=== PATIENT | female | born 1950 | race Caucasian/White ===

== ENCOUNTER 2017-07-24 04:53 | Emergency (ER) | payer BC, MEDICARE ==
[2017-07-24] MEDS ORDERED: MAG HYDROX/AL HYDROX/SIMETH 30 ML, HYOSCYAMINE ELIXIR 10 ML, CIMETIDINE HCL 300 MG, LID... PO STA ×4 (06:07)
[2017-07-24] MEDS ORDERED: PANTOPRAZOLE 40 MG/10 ML VIAL IVP STA (06:07)
[2017-07-24 06:44] LABS: Basophils % (A) 0 %; Eosinophils # (A) 0.2 k/uL (0-0.7); Eosinophils % (A) 2 %; HCT 39.5 % (34.0-46.0); HGB 12.9 gm/dL (11.4-16.0); Lymphocytes # (A) 1.2 k/uL (1.0-4.8); Lymphocytes % (A) 17 %; MCH 28.5 pg (25.0-35.0); MCHC 32.6 g/dL (31.0-37.0); MCV 87.4 fL (80.0-100.0); Mean Platelet Volume 8.8; Monocytes # (A) 0.4 k/uL (0-1.0); Monocytes % (A) 6 %; Neutrophils # (A) 5.1 k/uL (1.3-7.7); Neutrophils % (A) 72 %; Platelet Count 255 k/uL (150-450); RBC 4.52 m/uL (3.80-5.40); RDW 13.1 % (11.5-15.5); WBC 7.1 k/uL (3.8-10.6)
[2017-07-24 06:50] LABS: ALT 43 U/L (9-52); AST 19 U/L (14-36); Albumin 3.7 g/dL (3.5-5.0); Alkaline Phosphatase 93 U/L (38-126); Anion Gap 13 mmol/L; Blood Urea Nitrogen 20 mg/dL (7-17); Carbon Dioxide 20 mmol/L (22-30); Chloride 107 mmol/L (98-107); Glucose 94 mg/dL (74-99); Potassium 3.2 mmol/L (3.5-5.1); Sodium 140 mmol/L (137-145); Total Bilirubin 0.5 mg/dL (0.2-1.3); Total Protein 6.3 g/dL (6.3-8.2)
[2017-07-24 07:02] LABS: Creatine Kinase 76 U/L (30-135)
[2017-07-24 07:12] LABS: Partial Thromboplastin Time 21.1 sec (22.0-30.0)
[2017-07-24 07:16] LABS: Troponin I <0.012 ng/mL (0.000-0.034)
[2017-07-24 07:44] VITALS: RESP 18
[2017-07-24] MEDS ORDERED: DICYCLOMINE 20 MG TAB PO STA (08:26)
--- NOTE | 2017-07-24 08:26 | ED ---
General Adult HPI - General Chief complaint: Shortness of Breath Stated complaint: SOB Time Seen by Provider: 07/24/17 05:18 Source: patient, EMS Mode of arrival: EMS Limitations: no limitations - History of Present Illness Initial comments: This patient is 67-year-old woman who presents with some epigastric discomfort that started tonight. The symptoms have resolved. -: hour(s) Location: abdomen Quality: dull Consistency: now resolved Improves with: none Worsens with: none Associated Symptoms: denies other symptoms - Related Data Home Medications Medication Instructions Recorded Confirmed Atorvastatin [Lipitor] 20 mg PO HS 03/13/15 07/24/17 Clopidogrel [Plavix] 75 mg PO HS 03/13/15 07/24/17 Omeprazole [PriLOSEC] 20 mg PO AC-BRKFST 03/13/15 07/24/17 Polyethylene Glycol 3350 [Miralax] 17 gm PO DAILY@1800 03/13/15 07/24/17 Sucralfate [Carafate] 1 gm PO DAILY 03/13/15 07/24/17 traMADol HCl [Ultram] 50 mg PO Q6H PRN 04/19/15 07/24/17 Ferrous Sulfate [Iron] 325 mg PO DAILY 07/24/17 07/24/17 Latanoprost [Xalatan 0.005%] 1 drop BOTH EYES HS 07/24/17 07/24/17 Previous Rx's Medication Instructions Recorded Dicyclomine [Bentyl] 20 mg PO QID #15 tablet 07/24/17 Famotidine [Pepcid] 20 mg PO BID #14 tablet 07/24/17 Allergies Allergy/AdvReac Type Severity Reaction Status Date / Time No Known Allergies Allergy Verified 07/24/17 07:33 Review of Systems ROS Statement: Those systems with pertinent positive or pertinent negative responses have been documented in the HPI. ROS Other: All systems not noted in ROS Statement are negative. Constitutional: Denies: fever, chills, weakness Respiratory: Denies: cough, dyspnea Cardiovascular: Denies: chest pain, palpitations, dyspnea on exertion, orthopnea , syncope Gastrointestinal: Reports: as per HPI, abdominal pain, nausea. Denies: vomiting , diarrhea, melena, hematochezia Genitourinary: Denies: dysuria, hematuria Musculoskeletal: Denies: back pain Skin: Denies: rash Neurological: Denies: headache, weakness, numbness Past Medical History Past Medical History: CVA/TIA, GERD/Reflux Additional Past Medical History / Comment(s): STROKE, EVERYTHING RESOLVED. hx bleeding ulcers, lower back pain History of Any Multi-Drug Resistant Organisms: None Reported Past Surgical History: Hernia Repair, Hysterectomy, Orthopedic Surgery Additional Past Surgical History / Comment(s): Foot Surgery Past Anesthesia/Blood Transfusion Reactions: No Reported Reaction Past Psychological History: No Psychological Hx Reported Smoking Status: Former smoker Past Alcohol Use History: Occasional Past Drug Use History: None Reported - Past Family History Mother Family Medical History: No Reported History Father Family Medical History: Myocardial Infarction ([place]) General Exam Limitations: no limitations General appearance: alert, in no apparent distress Head exam: Present: atraumatic, normocephalic Eye exam: Present: normal appearance. Absent: scleral icterus, conjunctival injection Neck exam: Present: normal inspection Respiratory exam: Present: normal lung sounds bilaterally. Absent: respiratory distress, wheezes, rales, rhonchi, stridor Cardiovascular Exam: Present: regular rate, normal rhythm, normal heart sounds. Absent: systolic murmur, diastolic murmur, rubs, gallop GI/Abdominal exam: Present: soft, tenderness (Was mild epigastric tenderness without rebound or guarding), normal bowel sounds. Absent: distended, guarding , rebound, rigid, mass, pulsatile mass Extremities exam: Present: normal inspection, normal capillary refill. Absent: pedal edema, calf tenderness Back exam: Absent: CVA tenderness (R), CVA tenderness (L) Skin exam: Present: warm, dry, intact, normal color. Absent: rash Course Vital Signs 07/24/17 07/24/17 07/24/17 04:55 06:50 07:43 Temperature 97 F L Pulse Rate 71 66 66 Respiratory 17 17 18 Rate Blood Pressure 131/64 135/70 129/70 O2 Sat by Pulse 100 100 100 Oximetry 07/24/17 09:35 Temperature 98.4 F Pulse Rate 79 Respiratory 18 Rate Blood Pressure 128/69 O2 Sat by Pulse 98 Oximetry EKG Findings - EKG Results: EKG: interpreted by ERMD, sinus rhythm (Rate 65 bpm), normal axis, normal QRS - Blocks, [place], Hypertrophy, ST Abn: Repolarization changes or abnormalities: nonspecific abnormality, ST segment, and/or T wave Medical Decision Making - Medical Decision Making Patient's 67-year-old woman with epigastric discomfort that has resolved. We discussed possible causes for this. She is feeling better and wants to go home. Prior to going she did raise concern of having had some diarrhea and recent antibiotic course therefore was checked for clostridium which is negative. Discussed that she should follow-up with her physician for further care and also should any of the symptoms recur she will return here. - Lab Data Result diagrams: 07/24/17 06:23 07/24/17 06:23 Lab Results 07/24/17 07/24/17 07/24/17 Range/Units 06:23 06:23 06:23 WBC 7.1 (3.8-10.6) k/uL RBC 4.52 (3.80-5.40) m/uL Hgb 12.9 (11.4-16.0) gm/dL Hct 39.5 (34.0-46.0) % MCV 87.4 (80.0-100.0) fL MCH 28.5 (25.0-35.0) pg MCHC 32.6 (31.0-37.0) g/dL RDW 13.1 (11.5-15.5) % Plt Count 255 (150-450) k/uL Neutrophils % 72 % Lymphocytes % 17 % Monocytes % 6 % Eosinophils % 2 % Basophils % 0 % Neutrophils # 5.1 (1.3-7.7) k/uL Lymphocytes # 1.2 (1.0-4.8) k/uL Monocytes # 0.4 (0-1.0) k/uL Eosinophils # 0.2 (0-0.7) k/uL Basophils # 0.0 (0-0.2) k/uL PT (9.0-12.0) sec INR (<1.2) APTT (22.0-30.0) sec Sodium 140 (137-145) mmol/L Potassium 3.2 L (3.5-5.1) mmol/L Chloride 107 (98-107) mmol/L Carbon Dioxide 20 L (22-30) mmol/L Anion Gap 13 mmol/L BUN 20 H (7-17) mg/dL Creatinine 1.10 H (0.52-1.04) mg/dL Est GFR (MDRD) Af Amer >60 (>60 ml/min/1.73 sqM) Est GFR (MDRD) Non-Af 50 (>60 ml/min/1.73 sqM) Glucose 94 (74-99) mg/dL Plasma Lactic Acid Thomas (0.7-2.0) mmol/L Calcium 9.0 (8.4-10.2) mg/dL Total Bilirubin 0.5 (0.2-1.3) mg/dL AST 19 (14-36) U/L ALT 43 (9-52) U/L Alkaline Phosphatase 93 (38-126) U/L Total Creatine Kinase 76 (30-135) U/L CK-MB (CK-2) 1.0 (0.0-2.4) ng/mL CK-MB (CK-2) Rel Index 1.3 Troponin I <0.012 (0.000-0.034) ng/mL Total Protein 6.3 (6.3-8.2) g/dL Albumin 3.7 (3.5-5.0) g/dL Stool Occult Blood (Negative) C. difficile (EIA) Intrp (Negative) 07/24/17 07/24/17 07/24/17 Range/Units 06:23 06:23 07:36 WBC (3.8-10.6) k/uL RBC (3.80-5.40) m/uL Hgb (11.4-16.0) gm/dL Hct (34.0-46.0) % MCV (80.0-100.0) fL MCH (25.0-35.0) pg MCHC (31.0-37.0) g/dL RDW (11.5-15.5) % Plt Count (150-450) k/uL Neutrophils % % Lymphocytes % % Monocytes % % Eosinophils % % Basophils % % Neutrophils # (1.3-7.7) k/uL Lymphocytes # (1.0-4.8) k/uL Monocytes # (0-1.0) k/uL Eosinophils # (0-0.7) k/uL Basophils # (0-0.2) k/uL PT 10.0 (9.0-12.0) sec INR 1.0 (<1.2) APTT 21.1 L (22.0-30.0) sec Sodium (137-145) mmol/L Potassium (3.5-5.1) mmol/L Chloride (98-107) mmol/L Carbon Dioxide (22-30) mmol/L Anion Gap mmol/L BUN (7-17) mg/dL Creatinine (0.52-1.04) mg/dL Est GFR (MDRD) Af Amer (>60 ml/min/1.73 sqM) Est GFR (MDRD) Non-Af (>60 ml/min/1.73 sqM) Glucose (74-99) mg/dL Plasma Lactic Acid Thomas 0.9 (0.7-2.0) mmol/L Calcium (8.4-10.2) mg/dL Total Bilirubin (0.2-1.3) mg/dL AST (14-36) U/L ALT (9-52) U/L Alkaline Phosphatase (38-126) U/L Total Creatine Kinase (30-135) U/L CK-MB (CK-2) (0.0-2.4) ng/mL CK-MB (CK-2) Rel Index Troponin I (0.000-0.034) ng/mL Total Protein (6.3-8.2) g/dL Albumin (3.5-5.0) g/dL Stool Occult Blood Negative (Negative) C. difficile (EIA) Intrp (Negative) 07/24/17 Range/Units 07:36 WBC (3.8-10.6) k/uL RBC (3.80-5.40) m/uL Hgb (11.4-16.0) gm/dL Hct (34.0-46.0) % MCV (80.0-100.0) fL MCH (25.0-35.0) pg MCHC (31.0-37.0) g/dL RDW (11.5-15.5) % Plt Count (150-450) k/uL Neutrophils % % Lymphocytes % % Monocytes % % Eosinophils % % Basophils % % Neutrophils # (1.3-7.7) k/uL Lymphocytes # (1.0-4.8) k/uL Monocytes # (0-1.0) k/uL Eosinophils # (0-0.7) k/uL Basophils # (0-0.2) k/uL PT (9.0-12.0) sec INR (<1.2) APTT (22.0-30.0) sec Sodium (137-145) mmol/L Potassium (3.5-5.1) mmol/L Chloride (98-107) mmol/L Carbon Dioxide (22-30) mmol/L Anion Gap mmol/L BUN (7-17) mg/dL Creatinine (0.52-1.04) mg/dL Est GFR (MDRD) Af Amer (>60 ml/min/1.73 sqM) Est GFR (MDRD) Non-Af (>60 ml/min/1.73 sqM) Glucose (74-99) mg/dL Plasma Lactic Acid Thomas (0.7-2.0) mmol/L Calcium (8.4-10.2) mg/dL Total Bilirubin (0.2-1.3) mg/dL AST (14-36) U/L ALT (9-52) U/L Alkaline Phosphatase (38-126) U/L Total Creatine Kinase (30-135) U/L CK-MB (CK-2) (0.0-2.4) ng/mL CK-MB (CK-2) Rel Index Troponin I (0.000-0.034) ng/mL Total Protein (6.3-8.2) g/dL Albumin (3.5-5.0) g/dL Stool Occult Blood (Negative) C. difficile (EIA) Intrp Negative (Negative) Disposition Clinical Impression: Gastritis Disposition: HOME SELF-CARE Condition: Good Instructions: Gastritis (ED) Prescriptions: Dicyclomine [Bentyl] 20 mg PO QID #15 tablet Famotidine [Pepcid] 20 mg PO BID #14 tablet Referrals: Julia Haney MD [Primary Care Provider] - 1-2 days
[2017-07-24 09:37] VITALS: BP 128/69; PULSE 79; TEMP 98.4
== END 2017-07-24 09:37 | disposition home or self-care (01) ==
LOC: EC 04:53
DX: K29.70 Gastritis, unspecified, without bleeding (principal); K21.9 Gastro-esophageal reflux disease without esophagitis; Z86.73 Personal history of transient ischemic attack (TIA), and cerebral infarction without residual deficits; Z87.891 Personal history of nicotine dependence; Z79.02 Long term (current) use of antithrombotics/antiplatelets; Z79.899 Other long term (current) drug therapy
CPT/HCPCS: 36415; 93005; 80053; 82550; 82553; 83605; 84484; 85025; 85610; 85730; 82272; 87324; 99285; 96374; C9113

== ENCOUNTER → 2017-12-04 | Outpatient (CLI) | payer BC, MEDICARE | END | disposition home or self-care (01) | LOC: LABWHC1 16:04 | PROVIDERS: ATTEND Nurse Practitioner | DX: Z13.89 Encounter for screening for other disorder (principal); Z83.49 Family history of other endocrine, nutritional and metabolic diseases | CPT/HCPCS: 36415; 82390; 82525 ==

== ENCOUNTER → 2018-01-20 | Outpatient (CLI) | payer BC, MEDICARE ==
--- NOTE | 2018-01-21 13:44 | MM ---
Reason for exam: screening (asymptomatic). Last mammogram was performed 2 years and 4 months ago. History: Patient is postmenopausal. Physical Findings: A clinical breast exam by your physician is recommended on an annual basis and results should be correlated with mammographic findings. MG 3D Screening Mammo W/Cad Bilateral CC and MLO view(s) were taken. Prior study comparison: September 26, 2015, left breast MG 3d work up w/cad LT. September 08, 2015, bilateral MG 3d screening mammo w/cad. The breast tissue is heterogeneously dense. This may lower the sensitivity of mammography. There is no discrete abnormality. No significant changes when compared with prior studies. ASSESSMENT: Negative, BI-RAD 1 RECOMMENDATION: Routine screening mammogram of both breasts in 1 year.
== END | disposition home or self-care (01) ==
LOC: RADMAMWWP 07:51
PROVIDERS: ATTEND Family Medicine
DX: Z12.31 Encounter for screening mammogram for malignant neoplasm of breast (principal)
CPT/HCPCS: 77063; 77067

== ENCOUNTER → 2019-01-21 | Outpatient (CLI) | payer MEDICARE ==
--- NOTE | 2019-01-21 13:21 | MM ---
Reason for exam: screening (asymptomatic). Last mammogram was performed 1 year ago. History: Patient is postmenopausal. Physical Findings: A clinical breast exam by your physician is recommended on an annual basis and results should be correlated with mammographic findings. MG 3D Screening Mammo W/Cad Bilateral CC and MLO view(s) were taken. Prior study comparison: January 20, 2018, bilateral MG 3d screening mammo w/cad. September 26, 2015, left breast MG 3d work up w/cad LT. There are scattered fibroglandular densities. There is no discrete abnormality. ASSESSMENT: Negative, BI-RAD 1 RECOMMENDATION: Routine screening mammogram of both breasts in 1 year.
== END | disposition home or self-care (01) ==
LOC: RADMAMWWP 09:33
PROVIDERS: ATTEND Nurse Practitioner
DX: Z12.31 Encounter for screening mammogram for malignant neoplasm of breast (principal)
CPT/HCPCS: 77063; 77067

== ENCOUNTER → 2021-11-24 | Outpatient (CLI) | payer MEDICARE, OTHER ==
--- NOTE | 2021-11-24 08:45 | FL ---
EXAMINATION TYPE: FL barium swallow DATE OF EXAM: 11/24/2021 CLINICAL HISTORY: Dysphagia. Patient feels food getting stuck in the mid to distal esophagus. Mid to lower abdominal pain. History of bleeding ulcer 2014. Patient on chronic antireflux medication. TECHNIQUE: A double contrast esophagram is performed utilizing air and barium. A total of 27 second s of fluoroscopic time was utilized during procedure and 128 images obtained COMPARISON: None FINDINGS: The esophagus shows some mild dysmotility with a few abnormal secondary tertiary contractio ns. There is satisfactory emptying into stomach. No diverticulum is seen small sliding-type hiatal he rnia. No intraluminal mass or stricture. No significant gastroesophageal reflux was seen during real time performance of this study. IMPRESSION: Small sliding-type hiatal hernia. No suspicious focal mass or significant stricture. Mil d underlying esophageal dysmotility.
== END | disposition home or self-care (01) ==
LOC: RADUSWWP 07:45
PROVIDERS: ATTEND Surgery Plastic and Reconstructive Surgery
DX: K44.9 Diaphragmatic hernia without obstruction or gangrene (principal); K22.4 Dyskinesia of esophagus
CPT/HCPCS: 74220

== ENCOUNTER → 2021-12-12 | Outpatient (CLI) | payer MEDICARE, OTHER ==
--- NOTE | 2021-12-12 19:06 | BD ---
EXAMINATION TYPE: Axial Bone Density DATE OF EXAM: 12/12/2021 CLINICAL HISTORY: 71 years year old Female. ICD-10 CODE: Z78.0 Asymptomatic menopausal state Height: 5 FT 5 IN Weight: 182 FRAX RISK QUESTIONS: Alcohol (3 or more units per day): NO Family History (Parent hip fracture): NO Glucocorticoids (More than 3mos): NO (Ex: prednisone, prednisolone, methylprednisolone, dexamethasone, and hydrocortisone). History of Fracture in Adulthood: NO Secondary Osteoporosis: 1. Type 1 Diabetes: NO 2. Hyperthyroidism: NO 3. Menopause before 45: YES 4. Malnutrition: NO 5. Chronic liver disease: NO Rheumatoid Arthritis: NO Current Tobacco Use: NO RISK FACTORS HISTORY OF: Surgery to Spine/Hip(right/left)/Wrist (right/left): NO Family History of Osteoporosis: NO Active: YES Diet low in dairy products/other sources of calcium: NO Postmenopausal woman: YES Take estrogen and/or progesterone medications: NO Lost more than 2 inches in height since high school: YES Frequent falls: NO Poor Health: GOOD Hyperparathyroidism: NO Adrenal Insufficiency: NO MEDICATIONS: Additional Medications: PLAVIX, LIPITOR, PRILOSEC, CARAFATE, LEVOTHYROXINE, XALATAN Additional History: EXAM MEASUREMENTS: Bone mineral densitometry was performed using the [employer] System. Bone mineral density as measured about the Lumbar spine is: ----- L1-L4(G/cm2): 1.792 T Score Values are as follows: ----- L1: 5.1 ----- L2: 6.7 ----- L3: 3.6 ----- L4: 5.1 ----- L1-L4: 5.1 Bone mineral density has: INCREASED 25.7 % since study of: 2007 Bone mineral density about the R hip (g/cm2): 0.913 Bone mineral density about the L hip (g/cm2): 0.922 T Score values are as follows: -----R NecK : -0.8 -----L Neck: -0.9 -----R Total: -0.2 -----L Total: 0.1 Bone mineral density has: INCREASED 3.2 % since study of: 2007 FRAX%s: The graph provided illustrates a 3.1 % chance for a major osteoporotic fx and a 0.5 % chance for the hips probability for fx in 10 years time. IMPRESSION: Normal (Values between +1 and -1 indicate normal bone mass). However, note that measurements are bor dering on osteopenia at the hips. Consider repeating this study in 5 years or sooner if there is some new clinical indication. NOTE: T-SCORE=SD OF THE YOUNG ADULT MEAN.
--- NOTE | 2021-12-14 18:17 | MM ---
Reason for Exam: Screening (asymptomatic). Last mammogram was performed 2 year(s) and 11 month(s) ago. Patient History: Menarche at age 16. First Full-Term at age 28. Left ovary removed at age 49. Right ovary removed at age 49. Hysterectomy at age 49. Postmenopausal. Risk Values: Blanca 5 year model risk: 1.7%. NCI Lifetime model risk: 5.4%. Prior Study Comparison: 09/26/2015 Left Diagnostic Mammogram, [facility]. 01/20/2018 Bilateral Screening Mammogram, [facility]. 01/21/2019 Bilateral Screening Mammogram, [facility]. Tissue Density: There are scattered fibroglandular densities. Findings: Analyzed By CAD. There is no suspicious group of microcalcifications or new suspicious mass in either breast. Overall Assessment: Negative, BI-RAD 1 Management: Screening Mammogram of both breasts in 1 year. 1. Patient should continue monthly self breast exams. 2. This exam should not preclude additional follow-up of suspicious palpable abnormalities. Electronically signed and approved by: Amanda Corado M.D. Radiologist
== END | disposition home or self-care (01) ==
LOC: RADMAMWWP 13:30
PROVIDERS: ATTEND Family Medicine
DX: Z12.31 Encounter for screening mammogram for malignant neoplasm of breast (principal); Z78.0 Asymptomatic menopausal state
CPT/HCPCS: 77063; 77067; 77080

== ENCOUNTER 2022-01-04 09:52 | Day surgery (SDC) | payer MEDICARE, OTHER ==
[2021-12-29 15:07] VITALS: BMI 29.6
--- NOTE | 2022-01-04 07:35 | P.GSHP ---
History of Present Illness H&P Date: 01/04/22 CHIEF COMPLAINT: GERD HISTORY OF PRESENT ILLNESS: The patient is a 71-year-old female who presents reports gastroesophageal reflux disease. Upper endoscopy was offered for further evaluation and management. PAST MEDICAL HISTORY: Please see list. PAST SURGICAL HISTORY: Please see list. MEDICATIONS: Please see list. ALLERGIES: Please see list. SOCIAL HISTORY: No illicit drug use FAMILY HISTORY: No reports of Crohn disease or ulcerative colitis. REVIEW OF ORGAN SYSTEMS: CONSTITUTIONAL: No reports of fevers or chills. GI: Denies any blood in stools or constipation. PHYSICAL EXAM: VITAL SIGNS: Stable GENERAL: Well-developed and pleasant in no acute distress. HEENT: No scleral icterus. Extraocular movements grossly intact. Moist buccal mucosa. NECK: Supple without lymphadenopathy. CHEST: Unlabored respirations. Equal bilateral excursions. CARDIOVASCULAR: Regular rate and rhythm. Distal 2+ pulses. ABDOMEN: Soft, nondistended. MUSCULOSKELETAL: No clubbing, cyanosis, or edema. ASSESSMENT: 1. Gastroesophageal reflux disease PLAN: 1. Recommend proceeding with an upper endoscopy Past Medical History Past Medical History: CVA/TIA, Eye Disorder, GERD/Reflux, Hyperlipidemia Additional Past Medical History / Comment(s): STROKE, EVERYTHING RESOLVED. hx bleeding ulcers, lower back pain, BILAT GLAUCOMA History of Any Multi-Drug Resistant Organisms: None Reported Past Surgical History: Hernia Repair, Hysterectomy, Orthopedic Surgery Additional Past Surgical History / Comment(s): LT Foot Surgery. COLONOSCOPY Past Anesthesia/Blood Transfusion Reactions: No Reported Reaction Smoking Status: Former smoker - Past Family History Mother Family Medical History: No Reported History Father Family Medical History: Myocardial Infarction ([place]) Medications and Allergies Home Medications Medication Instructions Recorded Confirmed Type Atorvastatin [Lipitor] 20 mg PO HS 03/13/15 12/29/21 History Clopidogrel [Plavix] 75 mg PO HS 03/13/15 12/29/21 History Omeprazole [PriLOSEC] 20 mg PO AC-BRKFST 03/13/15 12/29/21 History Sucralfate [Carafate] 1 gm PO DAILY 03/13/15 12/29/21 History Latanoprost [Xalatan 0.005%] 1 drop BOTH EYES HS 07/24/17 12/29/21 History Levothyroxine Sodium [Synthroid] 50 mcg PO DAILY 12/29/21 12/29/21 History Allergies Allergy/AdvReac Type Severity Reaction Status Date / Time No Known Allergies Allergy Verified 12/29/21 14:55
[~2022-01-04 09:52] MED LIST: LACTATED RINGERS 1,000 ML IV SCH
[2022-01-04 10:22] VITALS: RESP 16; TEMP 96
[2022-01-04] MEDS ORDERED: LIDOCAINE 1% (10MG/ML) FOR IV START INTRADERMA ONE (10:22)
[2022-01-04] MEDS ORDERED: LIDOCAINE 2% INJ 20 MG/ML (2 ML VIAL) ONE (10:39)
[2022-01-04] MEDS ORDERED: PROPOFOL 10 MG/ML 20 ML VIAL IV ONE (10:39)
--- NOTE | 2022-01-04 10:57 | P.PCN ---
Date of Procedure: 01/04/22 Description of Procedure: PREOPERATIVE DIAGNOSIS: Gastroesophageal reflux disease. POSTOPERATIVE DIAGNOSIS: Gastroesophageal reflux disease. Gastritis. Diaphragmatic hiatal hernia OPERATION: Esophagogastroduodenoscopy with biopsies along antrum and duodenum SURGEON: Jaclyn Reyes MD ANESTHESIA: MAC. INDICATIONS: The patient is a 71-year-old female who presents with reflux disease. Benefits and risks of the procedure were described. Informed consent was obtained. DESCRIPTION: The patient was brought into the endoscopy suite and laid in the left lateral decubitus position. An Olympus gastroscope was passed along the posterior oropharynx down to the distal esophagus where the squamocolumnar junction was encountered at 36 cm from the incisors. The stomach was entered and no bile reflux was found. Additional findings are listed below. Biopsies with cold forceps were obtained of the antrum. The first through third portion of the duodenum was examined. Retroflexion of the scope confirmed Hill grade 3 lower esophageal valve. The squamocolumnar junction demonstrated LA grade B erosive e sophagitis. The stomach was desufflated. The patient tolerated the procedure well. FINDINGS: Squamocolumnar junction 36 cm from the incisors. Diaphragmatic hiatus at 38 cm. Hiatal hernia, 2 cm Hill grade 3 lower esophageal valve. LA grade B erosive esophagitis. Biopsies obtained of duodenum Chronic gastritis RECOMMENDATIONS: Upper endoscopy as needed. Plan - Discharge Summary Discharge Rx Participant: No New Discharge Prescriptions: Continue Sucralfate [Carafate] 1 gm PO DAILY Omeprazole [PriLOSEC] 20 mg PO AC-BRKFST Atorvastatin [Lipitor] 20 mg PO HS Clopidogrel [Plavix] 75 mg PO HS Latanoprost [Xalatan 0.005%] 1 drop BOTH EYES HS Levothyroxine Sodium [Synthroid] 50 mcg PO DAILY Discharge Medication List Atorvastatin [Lipitor] 20 mg PO HS 03/13/15 [History] Clopidogrel [Plavix] 75 mg PO HS 03/13/15 [History] Omeprazole [PriLOSEC] 20 mg PO AC-BRKFST 03/13/15 [History] Sucralfate [Carafate] 1 gm PO DAILY 03/13/15 [History] Latanoprost [Xalatan 0.005%] 1 drop BOTH EYES HS 07/24/17 [History] Levothyroxine Sodium [Synthroid] 50 mcg PO DAILY 12/29/21 [History] Follow up Appointment(s)/Referral(s): Jaclyn Reyes MD [STAFF PHYSICIAN] - 01/23/22 Patient Instructions/Handouts: GERD (Gastroesophageal Reflux Disease) (ED) Discharge Disposition: HOME SELF-CARE
[2022-01-04 11:16] VITALS: BP 112/72; PULSE 54
== END 2022-01-04 11:32 | disposition home or self-care (01) ==
LOC: ORWHC2ENDO 09:52
PROVIDERS: ATTEND Surgery Plastic and Reconstructive Surgery
DX: K21.00 Gastro-esophageal reflux disease with esophagitis, without bleeding (principal); K29.50 Unspecified chronic gastritis without bleeding; K44.9 Diaphragmatic hernia without obstruction or gangrene; E78.5 Hyperlipidemia, unspecified; H40.9 Unspecified glaucoma; Z86.73 Personal history of transient ischemic attack (TIA), and cerebral infarction without residual deficits; Z87.891 Personal history of nicotine dependence; Z82.49 Family history of ischemic heart disease and other diseases of the circulatory system; Z79.01 Long term (current) use of anticoagulants; Z79.899 Other long term (current) drug therapy; Z79.890 Hormone replacement therapy
CPT/HCPCS: 88305; 43239; J2704; J2001

== ENCOUNTER 2022-11-30 07:18 | Day surgery (SDC) | payer MEDICARE, OTHER ==
--- NOTE | 2022-11-30 06:01 | P.GSHP ---
History of Present Illness H&P Date: 11/30/22 CHIEF COMPLAINT: Paraesophageal hiatal hernia with gastroesophageal reflux disease. HISTORY OF PRESENT ILLNESS: The patient is a 72-year-old female who presents with symptomatic paraesophageal hiatal hernia over one year with gastroesophageal reflux disease. She has completed upper endoscopy workup. Now she presents for surgical intervention. PAST MEDICAL HISTORY: Please see list. PAST SURGICAL HISTORY: Please see list. MEDICATIONS: Please see list. ALLERGIES: Please see list. SOCIAL HISTORY: No illicit drug use FAMILY HISTORY: No reports of Crohn disease or ulcerative colitis. REVIEW OF ORGAN SYSTEMS: CONSTITUTIONAL: No reports of fevers or chills. GI: Denies any blood in stools or constipation. PHYSICAL EXAM: VITAL SIGNS: Stable GENERAL: Well-developed pleasant and in no acute distress. HEENT: No scleral icterus. Extraocular movements grossly intact. Moist buccal mucosa. NECK: Supple without lymphadenopathy. CHEST: Unlabored respirations. Equal bilateral excursions. CARDIOVASCULAR: Regular rate and rhythm. Distal 2+ pulses. ABDOMEN: Soft, nondistended. No peritoneal signs. MUSCULOSKELETAL: No clubbing, cyanosis, or edema. SKIN: Well-perfused. Good skin turgor. REPORTS: Upper endoscopy demonstrates paraesophageal hiatal hernia REPORTS: Cardiology risk assessment obtained. Please see chart. ASSESSMENT: 1. Diaphragmatic paraesophageal hiatal hernia with severe gastroesophageal reflux disease. PLAN: 1. Recommend proceeding with a robotic paraesophageal hiatal hernia with possible mesh. 2. Benefits and risks of surgical intervention was discussed including possibility of open technique. 3. Inpatient hospitalization recommended of 2 nights 4. DVT prophylaxis. 5. Antibiotic prophylaxis. 6. She has also completed a very low caloric high-protein diet to address underlying hepatomegaly. 7. Non narcotic pain management including abdominal wall block described 8. Blood sugar glucose described. 9. Weight loss management described. Past Medical History Past Medical History: CVA/TIA, GERD/Reflux, Thyroid Disorder Additional Past Medical History / Comment(s): STROKE, EVERYTHING RESOLVED. hx bleeding ulcers, lower back pain History of Any Multi-Drug Resistant Organisms: None Reported Past Surgical History: Hernia Repair, Hysterectomy, Orthopedic Surgery Additional Past Surgical History / Comment(s): Foot Surgery, inguinal hernia lft Past Anesthesia/Blood Transfusion Reactions: No Reported Reaction Additional Past Anesthesia/Blood Transfusion Reaction / Comment(s): no blood tx reactions with transfusion for bleeding ulcer Smoking Status: Former smoker - Past Family History Mother Family Medical History: No Reported History Father Family Medical History: Myocardial Infarction ([place]) Medications and Allergies Home Medications Medication Instructions Recorded Confirmed Type Atorvastatin [Lipitor] 20 mg PO HS 03/13/15 11/29/22 History Clopidogrel [Plavix] 75 mg PO HS 03/13/15 11/29/22 History Omeprazole [PriLOSEC] 20 mg PO AC-BRKFST 03/13/15 11/29/22 History Latanoprost [Xalatan 0.005%] 1 drop BOTH EYES HS 07/24/17 11/29/22 History Levothyroxine Sodium [Synthroid] 50 mcg PO DAILY 12/29/21 11/29/22 History Allergies Allergy/AdvReac Type Severity Reaction Status Date / Time No Known Allergies Allergy Verified 11/29/22 08:34
[~2022-11-30 07:18] MED LIST changes: +ACETAMINOPHEN TAB 500 MG TAB PO PRN; +CHLORHEXIDINE GLUCONATE 15 ML CUP MUCOUS MEM PRN; +DEXAMETHASONE SOD PHOSPHATE 4 MG/ML 1 ML VIAL IV ONE; +HEPARIN SODIUM,PORCINE/PF 5,000 UNIT/0.5 ML SYRINGE SQ PRN; +HYDROmorphone 0.5 MG/0.5 ML SYRINGE IVP PRN; -LACTATED RINGERS 1,000 ML IV SCH; +ONDANSETRON 4 MG/2 ML VIAL IVP ONE; +ONDANSETRON 4 MG/2 ML VIAL IVP PRN; +PANTOPRAZOLE 40 MG/10 ML VIAL IVP PRN; +SCOPOLAMINE 1 MG/72 HR PATCH TRANSDERM STA; +droPERidol 5 MG/2 ML VIAL IVP ONE
[2022-11-30] MEDS: LACTATED RINGERS 1,000 ML IV SCH (08:17)
[2022-11-30 08:38] LABS: Basophils % (A) 1 %; Eosinophils # (A) 0.2 k/uL (0-0.7); Eosinophils % (A) 4 %; HCT 32.3 % (34.0-46.0); HGB 10.5 gm/dL (11.4-16.0); Lymphocytes # (A) 1.4 k/uL (1.0-4.8); Lymphocytes % (A) 28 %; MCH 29.4 pg (25.0-35.0); MCHC 32.5 g/dL (31.0-37.0); MCV 90.5 fL (80.0-100.0); Mean Platelet Volume 11.2; Monocytes # (A) 0.3 k/uL (0-1.0); Monocytes % (A) 6 %; Neutrophils # (A) 2.8 k/uL (1.3-7.7); Neutrophils % (A) 59 %; Platelet Count 183 k/uL (150-450); RBC 3.56 m/uL (3.80-5.40); RDW 12.9 % (11.5-15.5); WBC 4.8 k/uL (3.8-10.6)
[2022-11-30 08:55] LABS: Albumin 3.7 g/dL (3.5-5.0); Calcium 9.2 mg/dL (8.4-10.2); Potassium 3.9 mmol/L (3.5-5.1); Total Bilirubin 0.4 mg/dL (0.2-1.3); Total Protein 6.3 g/dL (6.3-8.2)
[2022-11-30] MEDS ORDERED: MIDAZOLAM 2 MG/2 ML VIAL ONE (09:44)
[2022-11-30] MEDS ORDERED: GLYCOPYRROLATE 0.2 MG/ML 2 ML VIAL ONE (09:44)
[2022-11-30] MEDS ORDERED: fentaNYL (PF) 50 MCG/ML 2 ML AMP ONE (09:44)
[2022-11-30] MEDS ORDERED: ROCURONIUM 10 MG/ML (5 ML VIAL) IV ONE (09:44)
[2022-11-30] MEDS ORDERED: PROPOFOL 10 MG/ML 20 ML VIAL IV ONE (09:44)
[2022-11-30] MEDS ORDERED: NEOSTIGMINE 1 MG/ML 10 ML VIAL ONE (09:44)
[2022-11-30] MEDS ORDERED: LIDOCAINE 2% INJ 20 MG/ML (2 ML VIAL) ONE (09:44)
[2022-11-30] MEDS ORDERED: PHENYLEPHRINE-0.9% NACL SYG 1,000 MCG/10 ML SYRINGE ONE (09:44)
[2022-11-30] MEDS ORDERED: ePHEDrine 50 MG/ML 1 ML VIAL ONE (09:44)
[2022-11-30] MEDS ORDERED: SUCCINYLCHOLINE CHLORIDE 200 MG/10 ML VIAL IV ONE (09:44)
[2022-11-30] MEDS ORDERED: LIDOCAINE 0.5%-EPI 1:200,000 50 ML VIAL SQ ONE ×2 (10:18→10:19)
[2022-11-30] MEDS ORDERED: HYDROmorphone 0.5 MG/0.5 ML SYRINGE IVP ONE ×3 (11:52→12:07)
[2022-11-30] MEDS ORDERED: HYDROmorphone 1 MG/ML 1 ML SYRINGE IVP PRN (12:12)
--- NOTE | 2022-11-30 12:13 | P.OP ---
Date of Procedure: 11/30/22 Description of Procedure: SURGEON: HAYLEY HULL MD PREOPERATIVE DIAGNOSES: 1. Gastroesophageal reflux disease 2. Paraesophageal hiatal hernia, midline 3. Hypothyroidism 4. Coronary artery disease 5. Hyperlipidemia POSTOPERATIVE DIAGNOSES: 1. Gastroesophageal reflux disease 2. Paraesophageal hiatal hernia, midline, 3 x 3 cm 3. Hypothyroidism 4. Coronary artery disease 5. Hyperlipidemia 6. Pelvic adhesions OPERATION: 1. Robotic-assisted da Greg Xi laparoscopic reduction and repair of recurrent incarcerated paraesophageal hiatal hernia, 3 x 3 cm, with [place] Biopatch A 8 x 8 cm. 2. Intraoperative esophagogastroscopy 3. Placement of 56-[place] bougie ANESTHESIA: General with local anesthetic. ESTIMATED BLOOD LOSS: 5 mL Pathology: None COMPLICATIONS: None. FINDINGS: 1. Thoracic length 15 cm. 2. Port placed 12 cm distal. 3. Incarcerated upper pole of the stomach within the mediastinum with dissection performed 4. 3 cm paraesophageal incarcerated diaphragmatic hiatal hernia with moderate dissection into the mediastinum 5. [place] Biopatch A onlay mesh placed. 6. Reduction of incarcerated 3 cm superior pole of stomach from previously gastrectomy 7. GE junction at 35 cm from the incisors 8. Intra-abdominal esophageal length over 2 cm obtained INDICATIONS: The patient is a 72-year-old female who presents with epigastric abdominal pain, gastroesophageal reflux recalcitrant to medical therapy with a symptomatic diaphragmatic hiatal hernia. Preoperative workup including upper endoscopy demonstrated hiatal hernia with erosive esophagitis. Given the severity of her symptoms, she had elected for surgical intervention. Benefits and risks including bleeding, infection, recurrence, dysphagia, injury to the lung, need for further surgery was described at length. Informed consent was obtained. DESCRIPTION: The patient was brought into the operating room and placed in supine position. Preoperatively she had received heparin subcutaneously for DVT prophylaxis. After general induction, the abdomen was prepped and draped in standard sterile fashion. The patient had previously voided prior to coming to the operating room. Ioban draping was placed along the abdomen. A timeout protocol was confirmed with the surgical team, for which the patient's name, procedure to be performed including DVT prophylaxis with bilateral SCDs, and preoperative antibiotics were also confirmed. A robotic da Greg Xi system was prepped and primed. At 15 cm from the xiphoid to just below the umbilicus, proposed port sites were marked with indelible marker along the left axillary line, left mid-clavicular line with each ports were marked 10 cm from each other. A 5 mm 0 degrees laparoscopic trocar entry was performed along the left upper quadrant. The abdomen was insufflated to 15 mmHg pressure was tolerated well. Diagnostic laparoscopy demonstrated no injury to bowel, viscera. Peritoneal adhesions of the lower abdomen was identified and undisturbed. No additional adhesions were found along the liver or the sleeve gastrectomy to the liver. Next, one 8 mm robotic port was placed along the right upper abdomen. An 8-mm port was were placed along the left lateral abdominal wall. The camera 8-mm port was maintained along the epigastrium. Another 12 mm port was placed along the left upper abdominal wall after exchanging the 5 mm port. Please note that the ports were placed at least 20 cm away from the target anatomy. Care was taken to check that each robotic arm were safely away from collision with the bed or the patient. The patient was repositioned in reverse Trendelenburg position at 21-degrees after lowering the bed. The robot was docked above the left side of the patient. Using a grasper for arm 3, a grasper for arm 1, including vessel sealer for arm 2, the robotic system was docked and primed as described. Instruments were interchanged by the esl instructional assistant. I had sat at the console. Initial attention was brought to hiatus. Circumferentially the dissection at the hiatus was performed using vessel sealer including blunt dissection. The gastrohepatic ligament was cleaved using a vessel sealer. Next, the phrenoesophageal ligament was mobilized and the distal esophagus was mobilized circumferentially. An incarcerated hernia sac was found into the mediastinum. As a result, dissection into the mediastinum was performed. The left and right crura was identified. Significant mobilization of the distal to mid esophagus into the mediastinum was performed. Circumferentially, the hernia sac was incised and brought into the abdominal cavity. Care was taken to avoid any gastrotomy to the incarcerated upper pole of the stomach. The measured defect was measured with a ruler consistent with 3 cm axial length and 3 cm in width. After dissection, the distal esophagus at least 2 cm was brought into the abdominal cavity. Once the hiatus and crura was dissected, 2-0 VLOC suture was placed as a running suture to re-approximate the diaphragmatic hiatus posteriorly. To buttress the repair, a [place]atch A was prepared along the back table and cut in a half bardales-hole fashion as to reinforce the repair as an underlay. The mesh was resized posteriorly placed along the crural repair and tagged using 2- 0 VLOC. I went to the head of the bed to perform intraoperative esophagogastroduodenoscopy. An Olympus gastroscope was passed through posterior oropharynx, where the squamocolumnar junction was confirmed at 35 cm from the incisors. The hiatus repair was confirmed from the incisors. The stomach was entered. The stomach had been desufflated. No evidence of leaks were found or mucosal defects of the esophagus or stomach. The pylorus was patent. No duodenal ulcers were identified. This concluded the endoscopic portion of the case. The robot was undocked from the patient. I re-scrubbed into the case. All instruments and pneumoperitoneum were evacuated from the abdominal cavity. The incisions were cleansed with dilute hydrogen peroxide with saline solution. Incisions were reapproximated using 4-0 Monocryl in an interrupted subcuticular fashion. The 12-mm port site fascial defect was less than 8 mm in size. Exofin was applied to the skin. Local anesthetic was infiltrated in all wounds for postop analgesia. Multiple intra-abdominal films were obtained. At the end of the procedure, needle, sponge, and instrument count was verified correct by the surgical physician assistant. The patient had tolerated the procedure well and was taken to the postanesthesia unit in stable condition.
[2022-11-30] MEDS ORDERED: LACTATED RINGERS 1,000 ML IV ONE (12:49)
[2022-11-30] MEDS: METOCLOPRAMIDE 5 MG/ML 2 ML VIAL IVP SCH ×3 (13:27→23:15)
[2022-11-30] MEDS: ONDANSETRON 4 MG/2 ML VIAL IVP SCH ×3 (13:28→23:15)
[2022-11-30 14:39] VITALS: BMI 27.4
--- NOTE | 2022-11-30 15:42 | FL ---
EXAMINATION TYPE: FL esophagus cervic/pharynx DATE OF EXAM: 11/30/2022 LIMITED UGI-ESOPHAGRAM: CLINICAL HISTORY: Hiatal hernia, Eric fundoplication surgery earlier today. TECHNIQUE: Limited esophagram is performed utilizing 1 oz of Isovue-370. A total of 27 seconds of fl uoroscopic time was utilized during procedure. 20 images saved to PACS. Total DAP =488.07 FINDINGS: The patient swallowed contrast without difficulty or delay. Some underlying esophageal dys motility with abnormal secondary and tertiary contractions is seen and some distal pooling noted. The re is good flow of contrast along the diaphragmatic hiatus into the stomach, there is no evidence of contrast extravasation to suggest leak. No persistent hiatal hernia is seen. Patient remains asymptom atic. IMPRESSION: No evidence of leak or significant obstruction status post Eric fundoplication surgery earlier today.
[2022-11-30] MEDS ORDERED: SODIUM CHLORIDE 0.9% 1,000 ML IV ONE (18:58)
[2022-11-30] MEDS ORDERED: LATANOPROST 0.005% OPHTH DROPS 2.5 ML BTL BOTH EYES SCH (21:00)
[2022-11-30] MEDS: SIMETHICONE 80 MG CHEWABLE PO SCH (22:12)
[2022-11-30] MEDS: DEXAMETHASONE SOD PHOSPHATE 4 MG/ML 1 ML VIAL IVP SCH (23:15)
[2022-12-01] MEDS: DEXAMETHASONE SOD PHOSPHATE 4 MG/ML 1 ML VIAL IVP SCH ×2 (05:13→12:17)
[2022-12-01] MEDS: LACTATED RINGERS 1,000 ML IV SCH (05:13)
[2022-12-01] MEDS: METOCLOPRAMIDE 5 MG/ML 2 ML VIAL IVP SCH ×2 (05:13→12:17)
[2022-12-01] MEDS: ONDANSETRON 4 MG/2 ML VIAL IVP SCH ×2 (05:13→12:18)
[2022-12-01 08:39] VITALS: RESP 18
[2022-12-01] MEDS: SIMETHICONE 80 MG CHEWABLE PO SCH ×2 (08:53→12:17)
[2022-12-01 15:19] VITALS: BP 92/51; PULSE 52; TEMP 98.3
--- NOTE | 2022-12-01 16:56 | P.DS ---
Providers Expected date of discharge: 12/01/22 Attending physician: Jaclyn Reyes Primary care physician: Julia Haney [facility] Course: Esophagram negative for leak. No further reflux. No dysphagia. Stable for discharge. Diet reviewed for postop. Patient Condition at Discharge: Good Plan - Discharge Summary Discharge Rx Participant: Yes New Discharge Prescriptions: New Acetaminophen Tab [Tylenol Tab] 1,000 mg PO Q6HR PRN #30 tablet PRN Reason: Pain Simethicone [Gas-X] 125 mg PO AC-TID PRN #20 capsule PRN Reason: Pain Continue Omeprazole [PriLOSEC] 20 mg PO AC-BRKFST Atorvastatin [Lipitor] 20 mg PO HS Clopidogrel [Plavix] 75 mg PO HS Latanoprost [Xalatan 0.005%] 1 drop BOTH EYES HS Levothyroxine Sodium [Synthroid] 50 mcg PO DAILY Discharge Medication List Atorvastatin [Lipitor] 20 mg PO HS 03/13/15 [History] Clopidogrel [Plavix] 75 mg PO HS 03/13/15 [History] Omeprazole [PriLOSEC] 20 mg PO AC-BRKFST 03/13/15 [History] Latanoprost [Xalatan 0.005%] 1 drop BOTH EYES HS 07/24/17 [History] Levothyroxine Sodium [Synthroid] 50 mcg PO DAILY 12/29/21 [History] Acetaminophen Tab [Tylenol Tab] 1,000 mg PO Q6HR PRN #30 tablet 12/01/22 [Rx] Simethicone [Gas-X] 125 mg PO AC-TID PRN #20 capsule 12/01/22 [Rx] Follow up Appointment(s)/Referral(s): Jaclyn Reyes MD [STAFF PHYSICIAN] - 12/04/22 (TELEHEALTH) Patient Instructions/Handouts: *Surgery [facility] - Managing Your Pain After Surgery Without Opioids, Laparoscopic Hiatal Hernia Repair (DC) Activity/Diet/Wound Care/Special Instructions: Liquid diet only for 2 weeks until December 14October Shower. No soaking in bath tubs 2 weeks until December 14 Continue to use incentive spirometry to prevent pneumonias. Please continue to ambulate at home to prevent blood clots in legs. Please notify your surgeon if you develop nausea and vomiting including new onset of abdominal pain. No lifting over 4 pounds in 4 weeks, December 30 Drink 64 oz of fluid daily. Start protein shakes on . Notify bariatric center for temp over 101.0, increased pain, drainage from incisions. No straws or carbonated beverages. Liquid diet only. Sugar content should be less than 6 g to avoid dumping syndrome. Take MOM for constipation. CRUSH, OPEN, OR CUT TABLETS LARGER THAN A SIZE OF A TIC TAC Discharge Disposition: HOME SELF-CARE
== END 2022-12-01 19:00 | disposition home or self-care (01) ==
LOC: OR 07:18 → 4SSUR 11:27 → OR 12-01 19:00
PROVIDERS: ATTEND Surgery Plastic and Reconstructive Surgery
DX: K44.0 Diaphragmatic hernia with obstruction, without gangrene (principal); K21.9 Gastro-esophageal reflux disease without esophagitis; E03.9 Hypothyroidism, unspecified; N73.6 Female pelvic peritoneal adhesions (postinfective); I25.10 Atherosclerotic heart disease of native coronary artery without angina pectoris; E78.5 Hyperlipidemia, unspecified; Z86.73 Personal history of transient ischemic attack (TIA), and cerebral infarction without residual deficits; Z98.890 Other specified postprocedural states; Z90.710 Acquired absence of both cervix and uterus; Z87.891 Personal history of nicotine dependence; Z82.49 Family history of ischemic heart disease and other diseases of the circulatory system; Z79.890 Hormone replacement therapy; Z79.899 Other long term (current) drug therapy
CPT/HCPCS: 93005; 80053; 85025; 74210; 43282; 49521; C1781; J1100 ×2; J2765 ×2; J0690; J2405 ×2; J1170 ×2; C9113; J1644

== ENCOUNTER 2023-07-21 15:17 | Inpatient (IN) | payer MEDICARE, OTHER ==
[2023-07-21 16:10] LABS: Basophils % (A) 0 %; Eosinophils # (A) 0.1 k/uL (0-0.7); Eosinophils % (A) 1 %; HCT 26.1 % (34.0-46.0); HGB 8.9 gm/dL (11.4-16.0); Lymphocytes # (A) 1.6 k/uL (1.0-4.8); Lymphocytes % (A) 17 %; MCH 30.5 pg (25.0-35.0); MCHC 34.2 g/dL (31.0-37.0); MCV 89.2 fL (80.0-100.0); Mean Platelet Volume 12.2; Monocytes # (A) 0.3 k/uL (0-1.0); Monocytes % (A) 3 %; Neutrophils # (A) 7.3 k/uL (1.3-7.7); Neutrophils % (A) 78 %; Platelet Count 207 k/uL (150-450); RBC 2.93 m/uL (3.80-5.40); RDW 13.1 % (11.5-15.5); WBC 9.4 k/uL (3.8-10.6)
[2023-07-21 16:20] LABS: ALT 24 U/L (4-34); AST 25 U/L (14-36); African American GFR (CKD) >90 (>60 ml/min/1.73 sqM); Albumin 3.2 g/dL (3.5-5.0); Alkaline Phosphatase 56 U/L (38-126); Amylase 41 U/L (30-110); Anion Gap 8 mmol/L; Blood Urea Nitrogen 51 mg/dL (7-17); Calcium 8.7 mg/dL (8.4-10.2); Carbon Dioxide 18 mmol/L (22-30); Chloride 108 mmol/L (98-107); Glucose 122 mg/dL (74-99); Lipase 135 U/L (23-300); Non-African American GFR(CKD) 87 (>60 ml/min/1.73 sqM); Potassium 3.9 mmol/L (3.5-5.1); Sodium 134 mmol/L (137-145); Total Bilirubin 0.3 mg/dL (0.2-1.3); Total Protein 5.5 g/dL (6.3-8.2)
[2023-07-21 16:25] LABS: Prothrombin Time 10.7 sec (10.0-12.5)
[2023-07-21 16:28] LABS: Partial Thromboplastin Time 20.7 sec (22.0-30.0)
[2023-07-21 16:40] LABS: RBC Morphology Normal
--- NOTE | 2023-07-21 17:06 | ED ---
Abdominal Pain HPI - General Chief Complaint: Abdominal Pain Stated Complaint: SOB, Dizziness Time Seen by Provider: 07/21/23 15:26 Source: patient, RN notes reviewed Mode of arrival: ambulatory Limitations: no limitations - History of Present Illness Initial Comments: Patient is a 73-year-old female presented ER with chief complaint of right upper quadrant pain. Patient reports that for the past couple of days and is now endorsing dark tarry diarrhea since yesterday. Patient does state she has a history of bleeding ulcers and diverticulitis. She describes the pain is worse with food and she's been having a decreased appetite. She states the pain radiates to right upper quadrant to her right shoulder blade. Patient also reports mild shortness of breath with exertion. She does take plavix daily. Denies any chest pain, fevers, chills, urinary complaints, or peripheral edema. - Related Data Home Medications Medication Instructions Recorded Confirmed Atorvastatin [Lipitor] 20 mg PO HS 03/13/15 07/21/23 Clopidogrel [Plavix] 75 mg PO HS 03/13/15 07/21/23 Latanoprost [Xalatan 0.005%] 1 drop BOTH EYES HS 07/24/17 07/21/23 Levothyroxine Sodium [Synthroid] 50 mcg PO DAILY 12/29/21 07/21/23 Naproxen Sodium [Aleve] 220 mg PO BID PRN 07/21/23 07/21/23 polyethylene glycoL 3350 [Miralax] 12.75 gm PO DAILY 07/21/23 07/21/23 Allergies Allergy/AdvReac Type Severity Reaction Status Date / Time No Known Allergies Allergy Verified 07/21/23 18:30 Review of Systems ROS Statement: Those systems with pertinent positive or pertinent negative responses have been documented in the HPI. ROS Other: All systems not noted in ROS Statement are negative. Past Medical History Past Medical History: CVA/TIA, GERD/Reflux, Thyroid Disorder Additional Past Medical History / Comment(s): STROKE, EVERYTHING RESOLVED. hx bleeding ulcers, lower back pain History of Any Multi-Drug Resistant Organisms: None Reported Past Surgical History: Hernia Repair, Hysterectomy, Orthopedic Surgery Additional Past Surgical History / Comment(s): Foot Surgery, inguinal hernia lft Past Anesthesia/Blood Transfusion Reactions: No Reported Reaction Additional Past Anesthesia/Blood Transfusion Reaction / Comment(s): no blood tx reactions with transfusion for bleeding ulcer Past Psychological History: No Psychological Hx Reported Smoking Status: Former smoker Past Alcohol Use History: None Reported Past Drug Use History: None Reported - Past Family History Mother Family Medical History: No Reported History Father Family Medical History: Myocardial Infarction (ND) General Exam Limitations: no limitations General appearance: alert, in no apparent distress Head exam: Present: atraumatic, normocephalic, normal inspection Respiratory exam: Present: normal lung sounds bilaterally. Absent: respiratory distress, wheezes, rales, rhonchi, stridor Cardiovascular Exam: Present: regular rate, normal rhythm, normal heart sounds. Absent: systolic murmur, diastolic murmur, rubs, gallop, clicks GI/Abdominal exam: Present: soft, tenderness (RUQ, +murphys), normal bowel sounds. Absent: distended, guarding, rebound, rigid Rectal exam: Present: normal inspection, normal rectal tone, heme (+) stool Neurological exam: Present: alert, oriented X3, CN II-XII intact Psychiatric exam: Present: normal affect, normal mood Skin exam: Present: warm, dry, intact, normal color. Absent: rash Course Vital Signs 07/21/23 07/21/23 07/21/23 15:19 19:31 20:49 Temperature 97.4 F L Pulse Rate 106 H 87 70 Respiratory 22 12 21 Rate Blood Pressure 141/75 109/62 116/67 O2 Sat by Pulse 98 99 100 Oximetry Medical Decision Making - Medical Decision Making Was pt. sent in by a medical professional or institution (, PA, RIGGING UP MAN, urgent care, hospital, or skilled nursing...) When possible be specific @ -No Did you speak to anyone other than the patient for history (EMS, parent, family, police, friend...)? What history was obtained from this source @ -No Did you review nursing and triage notes (agree or disagree)? Why? @ -I reviewed and agree with nursing and triage notes Were old charts reviewed (outside hosp., previous admission, EMS record, old EK G, old radiological studies, urgent care reports/EKG's, skilled nursing records)? Report findings @ -No old charts were reviewed Differential Diagnosis (chest pain, altered mental status, abdominal pain women, abdominal pain men, vaginal bleeding, weakness, fever, dyspnea, syncope, headache, dizziness, GI bleed, back pain, seizure, CVA, palpatations, mental health, musculoskeletal)? @ -Differential Abdominal Pain Women: Appendicitis, Cholecystitis, diverticulosis, ischemic bowel, pancreatitis, hepatitis, UTI, gastroenteritis, AAA, incarcerated hernia, bowel obstruction, constipation, inflammatory bowel, hepatitis, peptic ulcer disease, splenic infarction, perforated viscus, vulvitis, ovarian torsion, PID, kidney stone, placenta abruption, this is not meant to be an all-inclusive list EKG interpreted by me (3pts min.). @ -As above X-rays interpreted by me (1pt min.). @ -Chest x-ray interpreted by me shows no acute process. CT interpreted by me (1pt min.). @ -CT abdomen and pelvis shows findings consistent with gastroduodenitis. There is also degenerative changes of the lumbar spine with moderate to severe spinal canal stenosis at L4 through L5. U/S interpreted by me (1pt. min.). @ -None done What testing was considered but not performed or refused? (CT, X-rays, U/S, labs)? Why? @ -None What meds were considered but not given or refused? Why? @ -None Did you discuss the management of the patient with other professionals (professionals i.e. DrAnand, PA, RIGGING UP MAN, lab, RT, psych nurse, social media marketing analyst, 8th grade mathematics teacher, teacher, [employer] plans staff officer, wrapper caser)? Give summary @ -Yes, I spoke with Dr. Fabian, commission broker general surgeon, who accepts consult and plans to perform EGD tomorrow. I also spoke with Dr. Blanc who accepts medical admission. Was smoking cessation discussed for >3mins.? @ -No Was critical care preformed (if so, how long)? @ -No Were there social determinants of health that impacted care today? How? (Homelessness, low income, unemployed, alcoholism, drug addiction, transportation, low edu. Level, literacy, decrease access to med. care, senior care, rehab)? @ -No Was there de-escalation of care discussed even if they declined (Discuss DNR or withdrawal of care, Hospice)? DNR status @ -No What co-morbidities impacted this encounter? (DM, HTN, Smoking, COPD, CAD, Cancer, CVA, ARF, Chemo, Hep., AIDS, mental health diagnosis, sleep apnea, morbid obesity)? @ -thyroid disorder, prior TIA, GERD Was patient admitted / discharged? Hospital course, mention meds given and route, prescriptions, significant lab abnormalities, going to OR and other per tinent info. @ -Admitted. Patient is a 73-year-old female presenting to the ER with chief complaint of right upper quadrant pain and dark tarry stools. Vitals stable. History and physical exam were completed. Patient was asked was tender to right upper quadrant. Labs obtained in the ER show a hemoglobin of 8.9. Stool occult positive. Urinalysis without signs of infection. Covid, rsv, influenza negative. EKG without signs of acute infarct or ischemia. Due to a upper qu adrant tenderness gallbladder ultrasound was obtained which was negative for acute process. Chest x-ray was also ordered which was negative for acute process. CT abdomen and pelvis was performed due to anemia which showed findings consistent with gastroduodenitis. Due to patient's history of bleeding ulcers patient will be admitted for EGD and to trend hemoglobin. I spoke with Dr. Fabian, on-call general surgeon, who accepted consult and plans to EGD tomorrow. Dr. Blanc excepts medical admission. Patient received 1 L of IV fluids and pain medication in the ER. Patient also started on IV Protonix. Patient be admitted for further care and treatment. Patient expressed understanding and agreement with care plan. Undiagnosed new problem with uncertain prognosis? @ -No Drug Therapy requiring intensive monitoring for toxicity (Heparin, Nitro, Insulin, Cardizem)? @ -No Were any procedures done? @ -None Diagnosis/symptom? @ -Anemia/ GI bleed Acute, or Chronic, or Acute on Chronic? @ -Acute Uncomplicated (without systemic symptoms) or Complicated (systemic symptoms)? @ -Complicated Side effects of treatment? @ -No Exacerbation, Progression, or Severe Exacerbation? @ -No Poses a threat to life or bodily function? How? (Chest pain, USA, ND, pneumonia, PE, COPD, DKA, ARF, appy, cholecystitis, CVA, Diverticulitis, Homicidal, Suicidal, threat to staff... and all critical care pts) @ -Yes, GI bleed can lead to anemia. Anemia can cause hypoxia which can be life threatening. - Lab Data Result diagrams: 07/21/23 15:55 07/21/23 15:55 Lab Results 0107/21/23 07/21/23 Range/Units 15:55 15:55 15:55 WBC 9.4 (3.8-10.6) k/uL RBC 2.93 L (3.80-5.40) m/uL Hgb 8.9 L (11.4-16.0) gm/dL Hct 26.1 L (34.0-46.0) % MCV 89.2 (80.0-100.0) fL MCH 30.5 (25.0-35.0) pg MCHC 34.2 (31.0-37.0) g/dL RDW 13.1 (11.5-15.5) % Plt Count 207 (150-450) k/uL MPV 12.2 Neutrophils % 78 % Lymphocytes % 17 % Monocytes % 3 % Eosinophils % 1 % Basophils % 0 % Neutrophils # 7.3 (1.3-7.7) k/uL Lymphocytes # 1.6 (1.0-4.8) k/uL Monocytes # 0.3 (0-1.0) k/uL Eosinophils # 0.1 (0-0.7) k/uL Basophils # 0.0 (0-0.2) k/uL RBC Morphology Normal PT 10.7 (10.0-12.5) sec INR 1.0 (<1.2) APTT 20.7 L (22.0-30.0) sec Sodium (137-145) mmol/L Potassium (3.5-5.1) mmol/L Chloride (98-107) mmol/L Carbon Dioxide (22-30) mmol/L Anion Gap mmol/L BUN (7-17) mg/dL Creatinine (0.52-1.04) mg/dL Est GFR (CKD-EPI)AfAm (>60 ml/min/1.73 sqM) Est GFR (CKD-EPI)NonAf (>60 ml/min/1.73 sqM) Glucose (74-99) mg/dL Plasma Lactic Acid Thomas (0.7-2.0) mmol/L Calcium (8.4-10.2) mg/dL Total Bilirubin (0.2-1.3) mg/dL AST (14-36) U/L ALT (4-34) U/L Alkaline Phosphatase (38-126) U/L Troponin I (0.000-0.034) ng/mL Total Protein (6.3-8.2) g/dL Albumin (3.5-5.0) g/dL Amylase (30-110) U/L Lipase (23-300) U/L Urine Color Colorless Urine Appearance Clear (Clear) Urine pH 5.5 (5.0-8.0) Ur Specific Stockwell 1.020 (1.001-1.035) Urine Protein Negative (Negative) Urine Glucose (UA) Negative (Negative) Urine Ketones Negative (Negative) Urine Blood Negative (Negative) Urine Nitrite Negative (Negative) Urine Bilirubin Negative (Negative) Urine Urobilinogen <2.0 (<2.0) mg/dL Ur Leukocyte Esterase Negative (Negative) Stool Occult Blood (Negative) Blood Type Blood Type Confirm Blood Type Recheck Bld Type Recheck Status Antibody Screen Spec Expiration Date 07/21/23 07/21/23 07/21/23 Range/Units 15:55 15:55 15:55 WBC (3.8-10.6) k/uL RBC (3.80-5.40) m/uL Hgb (11.4-16.0) gm/dL Hct (34.0-46.0) % MCV (80.0-100.0) fL MCH (25.0-35.0) pg MCHC (31.0-37.0) g/dL RDW (11.5-15.5) % Plt Count (150-450) k/uL MPV Neutrophils % % Lymphocytes % % Monocytes % % Eosinophils % % Basophils % % Neutrophils # (1.3-7.7) k/uL Lymphocytes # (1.0-4.8) k/uL Monocytes # (0-1.0) k/uL Eosinophils # (0-0.7) k/uL Basophils # (0-0.2) k/uL RBC Morphology PT (10.0-12.5) sec INR (<1.2) APTT (22.0-30.0) sec Sodium 134 L (137-145) mmol/L Potassium 3.9 (3.5-5.1) mmol/L Chloride 108 H (98-107) mmol/L Carbon Dioxide 18 L (22-30) mmol/L Anion Gap 8 mmol/L BUN 51 H (7-17) mg/dL Creatinine 0.70 (0.52-1.04) mg/dL Est GFR (CKD-EPI)AfAm >90 (>60 ml/min/1.73 sqM) Est GFR (CKD-EPI)NonAf 87 (>60 ml/min/1.73 sqM) Glucose 122 H (74-99) mg/dL Plasma Lactic Acid Thomas 1.5 (0.7-2.0) mmol/L Calcium 8.7 (8.4-10.2) mg/dL Total Bilirubin 0.3 (0.2-1.3) mg/dL AST 25 (14-36) U/L ALT 24 (4-34) U/L Alkaline Phosphatase 56 (38-126) U/L Troponin I <0.012 (0.000-0.034) ng/mL Total Protein 5.5 L (6.3-8.2) g/dL Albumin 3.2 L (3.5-5.0) g/dL Amylase 41 (30-110) U/L Lipase 135 (23-300) U/L Urine Color Urine Appearance (Clear) Urine pH (5.0-8.0) Ur Specific Stockwell (1.001-1.035) Urine Protein (Negative) Urine Glucose (UA) (Negative) Urine Ketones (Negative) Urine Blood (Negative) Urine Nitrite (Negative) Urine Bilirubin (Negative) Urine Urobilinogen (<2.0) mg/dL Ur Leukocyte Esterase (Negative) Stool Occult Blood (Negative) Blood Type Blood Type Confirm Blood Type Recheck Bld Type Recheck Status Antibody Screen Spec Expiration Date 07/21/23 07/21/23 07/21/23 Range/Units 15:55 15:56 16:03 WBC (3.8-10.6) k/uL RBC (3.80-5.40) m/uL Hgb (11.4-16.0) gm/dL Hct (34.0-46.0) % MCV (80.0-100.0) fL MCH (25.0-35.0) pg MCHC (31.0-37.0) g/dL RDW (11.5-15.5) % Plt Count (150-450) k/uL MPV Neutrophils % % Lymphocytes % % Monocytes % % Eosinophils % % Basophils % % Neutrophils # (1.3-7.7) k/uL Lymphocytes # (1.0-4.8) k/uL Monocytes # (0-1.0) k/uL Eosinophils # (0-0.7) k/uL Basophils # (0-0.2) k/uL RBC Morphology PT (10.0-12.5) sec INR (<1.2) APTT (22.0-30.0) sec Sodium (137-145) mmol/L Potassium (3.5-5.1) mmol/L Chloride (98-107) mmol/L Carbon Dioxide (22-30) mmol/L Anion Gap mmol/L BUN (7-17) mg/dL Creatinine (0.52-1.04) mg/dL Est GFR (CKD-EPI)AfAm (>60 ml/min/1.73 sqM) Est GFR (CKD-EPI)NonAf (>60 ml/min/1.73 sqM) Glucose (74-99) mg/dL Plasma Lactic Acid Thomas (0.7-2.0) mmol/L Calcium (8.4-10.2) mg/dL Total Bilirubin (0.2-1.3) mg/dL AST (14-36) U/L ALT (4-34) U/L Alkaline Phosphatase (38-126) U/L Troponin I (0.000-0.034) ng/mL Total Protein (6.3-8.2) g/dL Albumin (3.5-5.0) g/dL Amylase (30-110) U/L Lipase (23-300) U/L Urine Color Urine Appearance (Clear) Urine pH (5.0-8.0) Ur Specific Stockwell (1.001-1.035) Urine Protein (Negative) Urine Glucose (UA) (Negative) Urine Ketones (Negative) Urine Blood (Negative) Urine Nitrite (Negative) Urine Bilirubin (Negative) Urine Urobilinogen (<2.0) mg/dL Ur Leukocyte Esterase (Negative) Stool Occult Blood Positive H (Negative) Blood Type A Positive Blood Type Confirm A Positive Blood Type Recheck No Previous Record Bld Type Recheck Status CABO Indicated Antibody Screen NEGATIVE Spec Expiration Date 07/24/20232354 - EKG Data -: EKG Interpreted by Nm EKG Comments: EKG taken at 15:38 shows sinus tachycardia with no acute ST segment or T-wave abnormalities. Ventricular rate 100, NE interval 150, QRS duration 91, QT/QTC 340/397. - Radiology Data Radiology results: report reviewed, image reviewed Disposition Clinical Impression: Anemia, GI bleed Disposition: ADMITTED IP TO THIS HOSP Condition: Fair Time of Disposition: 20:00
[2023-07-21] MEDS ORDERED: SODIUM CHLORIDE 0.9% 1,000 ML IV STA (17:13)
--- NOTE | 2023-07-21 17:22 | XR ---
EXAMINATION TYPE: XR chest 2V DATE OF EXAM: 07/21/2023 4:07 PM CLINICAL INDICATION:Female, 73 years old with history of dyspnea; PH[facility] COMPARISON: None TECHNIQUE: XR chest 2V. Frontal and lateral views of the chest.. FINDINGS: Lines/Tubes/Devices: EKG leads overlie the chest. No indwelling lines are seen. Heart/mediastinum: Heart size is normal. Mediastinum appears normal. Pulmonary vascularity: Not increased, Lungs/Pleura: Hyperinflation with flattening of the diaphragm and mild interstitial changes suggest C OPD. No evidence of focal consolidation, sizeable pleural effusion, or pneumothorax. Musculoskeletal: No acute osseous abnormality demonstrated in the limits of the exam. Mild degenerat corinne changes of the spine and shoulders. Other findings: None. IMPRESSION: 1. No acute cardiopulmonary disease process. 2. COPD changes.
--- NOTE | 2023-07-21 17:36 | US ---
EXAMINATION TYPE: US gallbladder DATE OF EXAM: 07/21/2023 COMPARISON: NONE CLINICAL INDICATION: Female, 73 years old with history of RUQ pain; RUQ discomfort. HX of hiatal her gwen repair. TECHNIQUE: Multiple sonographic images of the right upper quadrant are obtained. FINDINGS: EXAM MEASUREMENTS: Liver Length: 13.4 cm Gallbladder Wall: 0.2 cm CBD: 0.6 cm Right Kidney: 9.7 x 4.3 x 5.3 cm MANAGER CUSTOMER NOTES:Suboptimal due to overlying bowel gas Pancreas: Limited visualization Liver: Slightly heterogenous and echodense. Left lobe cystic cluster= 1.3 x 1.5 x 1.4 cm Gallbladder: wnl, fold seen Evidence for sonographic Leggett's sign: neg CBD: wnl Right Kidney: Medial mid cortical cystic appearing lesion = 0.9 x 1.0 x 0.9 cm IMPRESSION: * Echogenic liver suggesting diffuse liver disease, which statistically most often is on the basis o f hepatic steatosis. Differential diagnosis includes artifact on the basis of body habitus. The findi ng does limit evaluation of the liver parenchyma. * Left hepatic lobe 1.5 cm cyst cluster. * No evidence of acute cholecystitis or biliary ductal dilatation. * Small right renal cyst.
--- NOTE | 2023-07-21 19:06 | CT ---
EXAMINATION TYPE: CT abdomen pelvis w con CT DLP: 902.2 mGycm, Automated exposure control for dose reduction was used. DATE OF EXAM: 07/21/2023 5:37 PM COMPARISON: Ultrasound gallbladder same day CLINICAL INDICATION:Female, 73 years old with history of pain; RUQ pain TECHNIQUE: Axial CT of the abdomen and pelvis. Sagittal and coronal reformats were created on a [employer] workstation. Contrast used:100 mL of Isovue 300 with IV Contrast, (none if empty) Oral contrast used: without Oral Contrast (none if empty) FINDINGS: LOWER CHEST: Unremarkable ABDOMEN LIVER: A few small hepatic hypodensities, largest in the left lobe corresponds to the cystic cluster identified at ultrasound. No suspicious hepatic mass lesion. GALLBLADDER AND BILE DUCTS: No evidence of calcified gallstones, distention, or pericholecystic infla mmatory change. Nondilated biliary tree. CBD is 5.6 mm. PANCREAS: Unremarkable. SPLEEN: Spleen and adjacent splenule inferiorly are unremarkable. ADRENAL GLANDS: Mildly thickened, may be seen with hyperplasia.. KIDNEYS AND URETERS: Kidneys enhance symmetrically. No evidence of hydronephrosis or visible renal ca lculus. The ureters are unremarkable. 2 small hypodensities in the mid to lower right kidney, and one in the lower pole left kidney, appear to be cysts. PELVIS BLADDER: Unremarkable REPRODUCTIVE: The uterus appears absent, correlate for hysterectomy. ABDOMEN & PELVIS STOMACH AND BOWEL: Portions of the stomach are not distended not well evaluated. There is questionabl e mild wall thickening and enhancement of the gastric outlet and proximal duodenum which may suggest inflammation. A couple small vague areas of increased attenuation suggested in the descending duodenu m may represent ingested material? Distal small bowel loops are nondistended, there is no evidence of obstruction. There is moderate stool throughout the colon without evidence of acute abnormality. Sev eral sigmoid region diverticula without signs of diverticulitis. PERITONEUM/RETROPERITONEUM: No evidence of pneumoperitoneum or free fluid. VASCULATURE: Mild atherosclerotic calcifications are present throughout the abdominal aorta and its b ranches. No evidence of aortic aneurysm. Portal veins are enhancing. Splenic vein is patent. LYMPH NODES: No gross evidence for lymphadenopathy. SOFT TISSUE/ABDOMINAL WALL: Unremarkable MUSCULOSKELETAL: No acute osseous abnormalities. Moderate to severe disc degeneration changes are pre sent throughout the thoracolumbar spine. Degenerative grade 1 anterolisthesis L4 over L5. Moderate t o severe spinal canal stenosis L4-L5. Mild apex right lumbar scoliosis. IMPRESSION: 1. Findings in the distal stomach and proximal duodenum may suggest gastroduodenitis. 2. No evidence of bowel obstruction or free air. 3. Unremarkable gallbladder and biliary tree. 4. Degenerative changes of the lumbar spine with moderate to severe spinal canal stenosis L4-L5.
[2023-07-21 19:11] LABS: Appearance,Urine Clear (Clear); Bilirubin,Urine Negative (Negative); Blood,Urine Negative (Negative); Color,Urine Colorless; Glucose,Urine (UA) Negative (Negative); Ketones,Urine Negative (Negative); Leukocyte Esterase,Urine Negative (Negative); Nitrite,Urine Negative (Negative); PH, Urine 5.5 (5.0-8.0); Protein,Urine Negative (Negative); Urobilinogen,Urine <2.0 mg/dL (<2.0)
[2023-07-21] MEDS ORDERED: HYDROmorphone 0.5 MG/0.5 ML SYRINGE IVP STA (19:20)
[2023-07-21] MEDS ORDERED: ONDANSETRON 4 MG/2 ML VIAL IVP STA (19:20)
[2023-07-21] MEDS ORDERED: HYDROmorphone 0.5 MG/0.5 ML SYRINGE IVP PRN (19:51)
[2023-07-21] MEDS ORDERED: NALOXONE 0.4 MG/ML 1 ML VIAL IV PRN (19:51)
[2023-07-21] MEDS ORDERED: METOCLOPRAMIDE 5 MG/ML 2 ML VIAL IVP PRN (19:53)
[2023-07-21] MEDS: SODIUM CHLORIDE 0.9% 1,000 ML IV SCH (20:39)
[2023-07-22] MEDS: SODIUM CHLORIDE 0.9% 1,000 ML IV SCH ×2 (08:27→20:26)
[2023-07-22] MEDS ORDERED: PANTOPRAZOLE 40 MG/10 ML VIAL IV SCH (09:00)
[2023-07-22 09:21] LABS: MCH 29.9 pg (25.0-35.0); MCHC 32.9 g/dL (31.0-37.0); MCV 90.8 fL (80.0-100.0); Mean Platelet Volume 10.3; Platelet Count 188 k/uL (150-450); RBC 2.08 m/uL (3.80-5.40); RDW 13.5 % (11.5-15.5); WBC 9.2 k/uL (3.8-10.6)
[2023-07-22 09:26] LABS: HCT 18.9 % (34.0-46.0); HGB 6.2 gm/dL (11.4-16.0)
[2023-07-22 09:29] LABS: African American GFR (CKD) >90 (>60 ml/min/1.73 sqM); Anion Gap 4 mmol/L; Blood Urea Nitrogen 42 mg/dL (7-17); Calcium 8.1 mg/dL (8.4-10.2); Carbon Dioxide 20 mmol/L (22-30); Chloride 114 mmol/L (98-107); Glucose 109 mg/dL (74-99); Non-African American GFR(CKD) 85 (>60 ml/min/1.73 sqM); Potassium 4.3 mmol/L (3.5-5.1); Sodium 138 mmol/L (137-145)
[2023-07-22] MEDS ORDERED: LIDOCAINE 1% INJ 10MG/ML (20 ML MDV) ONE (09:49)
[2023-07-22] MEDS ORDERED: PROPOFOL 10 MG/ML 20 ML VIAL IV ONE (09:49)
--- NOTE | 2023-07-22 10:04 | P.OP ---
Date of Procedure: 07/22/23 Preoperative Diagnosis: Upper GI bleed Postoperative Diagnosis: Pyloric ulcer Procedure(s) Performed: EGD Anesthesia: MAC Surgeon: Deandre Fabian Pathology: other (Antrum) Condition: stable Disposition: PACU Description of Procedure: The patient's placed on the endoscopy table in the lateral position. She received IV sedation. The gastro-/oropharynx passed in the esophagus and stomach. Scope then placed through the pylorus. The first and second portion of the duodenum was examined. There was blood in the first portion duodenum. The second portion duodenum appeared normal. The scope was then brought back and at the level of the pylorus there was a ulcer seen. There was a clot seen. The area was biopsied. The scope was brought back and stomach. In the antrum appeared normal. Scope was retroflexed the meters stomach appeared normal. The GE junction was at 40 cm. The distal esophagus appeared normal. The proximal esophagus appeared normal. Scope withdrawn for patient.
[2023-07-22] MEDS ORDERED: IV FLUID CONTINUATION 600 ML IV ONE (10:06)
--- NOTE | 2023-07-22 12:25 | P.GSCN ---
History of Present Illness Consult date: 07/22/23 History of present illness: CHIEF COMPLAINT: Epigastric abdominal pain HISTORY OF PRESENT ILLNESS: This is a 73-year-old female who presented to hospital with complaints of epigastric abdominal pain that radiated over to the right upper quadrant 4 days. Also has been having black tarry stools for 3 days. She does take Aleve and Plavix at home. Patient does have a prior history of a bleeding stomach ulcer over 10 years ago. Computed tomography scan had showed evidence of gastroduodenitis. Patient is scheduled for EGD today. PAST MEDICAL HISTORY: CVA, GERD, thyroid disorder, bleeding stomach ulcer, lower back pain PAST SURGICAL HISTORY: Hiatal hernia repair, hysterectomy MEDICATIONS: See below ALLERGIES: See below SOCIAL HISTORY: No illicit drug use. REVIEW OF SYSTEMS: CONSTITUTIONAL: Denies fever or chills. HEENT: Denies blurred vision, vision changes, or eye pain. Denies hemoptysis CARDIOVASCULAR: Denies chest pain or pressure. RESPIRATORY: No shortness of breath. GASTROINTESTINAL: See HPI for pertinent findings HEMATOLOGIC: Denies bleeding disorders. GENITOURINARY: Denies any blood in urine or increased urinary frequency. SKIN: Denies pruitis. Denies rash. PHYSICAL EXAM: VITAL SIGNS: Reviewed GENERAL: Pale .Well-developed in no acute distress. ABDOMEN: Soft. Nondistended. Epigastric tenderness with palpation NEUROLOGIC: Alert and oriented. Cranial nerves II through XII grossly intact. LABORATORY DATA: WBC 9.2 Hgb 8.9 down to 6.2 plt 188 Sodium 138 potassium 4.3 creatinine 0.72 Fecal occult blood positive IMAGING: Computed tomography scan abdomen and pelvis findings in the distal stomach and proximal duodenal may suggest gastroduodenitis. No evidence of bowel obstruction or free air. Unremarkable gallbladder and biliary tree. She'll change the lumbar spine. With moderate to severe spinal canal stenosis L4 to L5. Gallbladder ultrasound echogenic liver suggesting diffuse liver disease which is a squamous office on the basis of hepatic steatosis. No evidence of acute cholecystitis or biliary ductal dilatation. Left hepatic lobe 1.5 cm cyst. Small right renal cyst. ASSESSMENT: 1. Epigastric abdominal pain with melanotic stools 2. Prior history of bleeding stomach ulcer 3. Daily NSAID use 4. History of CVA takes Plavix at home PLAN: -Patient scheduled for EGD today with Dr. sanders -Increase Protonix to 40 mg IV twice a day -Transfuse 1 unit of blood for hemoglobin of 6.2 -Continue to monitor for any signs or symptoms of bleeding -Continue to monitor hemoglobin -Hold NSAIDS and Plavix Physician Plaque Maker note has been reviewed by physician. Signing provider agrees with the documented findings, assessment, and plan of care. Past Medical History Past Medical History: CVA/TIA, GERD/Reflux, Thyroid Disorder Additional Past Medical History / Comment(s): STROKE, EVERYTHING RESOLVED. hx bleeding ulcers, lower back pain History of Any Multi-Drug Resistant Organisms: None Reported Past Surgical History: Hernia Repair, Hysterectomy, Orthopedic Surgery Additional Past Surgical History / Comment(s): Foot Surgery, inguinal hernia lft Past Anesthesia/Blood Transfusion Reactions: No Reported Reaction Additional Past Anesthesia/Blood Transfusion Reaction / Comm: no blood tx reactions with transfusion for bleeding ulcer Past Psychological History: No Psychological Hx Reported Smoking Status: Former smoker Past Alcohol Use History: None Reported Past Drug Use History: None Reported - Past Family History Mother Family Medical History: No Reported History Father Family Medical History: Myocardial Infarction ([place]) Medications and Allergies Home Medications Medication Instructions Recorded Confirmed Type Atorvastatin [Lipitor] 20 mg PO HS 03/13/15 07/21/23 History Clopidogrel [Plavix] 75 mg PO HS 03/13/15 07/21/23 History Latanoprost [Xalatan 0.005%] 1 drop BOTH EYES HS 07/24/17 07/21/23 History Levothyroxine Sodium [Synthroid] 50 mcg PO DAILY 12/29/21 07/21/23 History Naproxen Sodium [Aleve] 220 mg PO BID PRN 07/21/23 07/21/23 History polyethylene glycoL 3350 [Miralax] 12.75 gm PO DAILY 07/21/23 07/21/23 History Allergies Allergy/AdvReac Type Severity Reaction Status Date / Time No Known Allergies Allergy Verified 07/21/23 18:30 Surgical - Exam Vital Signs Temp Pulse Resp BP Pulse Ox 97.4 F L 106 H 22 141/75 98 07/21/23 15:19 07/21/23 15:19 07/21/23 15:19 07/21/23 15:19 07/21/23 15:19 Results - Labs 07/22/23 08:52 07/22/23 08:52 Abnormal Lab Results - Last 24 Hours (Table) 07/21/23 07/21/23 07/21/23 Range/Units 15:55 15:55 15:55 RBC 2.93 L (3.80-5.40) m/uL Hgb 8.9 L (11.4-16.0) gm/dL Hct 26.1 L (34.0-46.0) % APTT 20.7 L (22.0-30.0) sec Sodium 134 L (137-145) mmol/L Chloride 108 H (98-107) mmol/L Carbon Dioxide 18 L (22-30) mmol/L BUN 51 H (7-17) mg/dL Glucose 122 H (74-99) mg/dL Calcium (8.4-10.2) mg/dL Total Protein 5.5 L (6.3-8.2) g/dL Albumin 3.2 L (3.5-5.0) g/dL Stool Occult Blood (Negative) Crossmatch 07/21/23 07/21/23 07/22/23 Range/Units 15:55 15:56 08:52 RBC 2.08 L (3.80-5.40) m/uL Hgb 6.2 L* D (11.4-16.0) gm/dL Hct 18.9 L* (34.0-46.0) % APTT (22.0-30.0) sec Sodium (137-145) mmol/L Chloride (98-107) mmol/L Carbon Dioxide (22-30) mmol/L BUN (7-17) mg/dL Glucose (74-99) mg/dL Calcium (8.4-10.2) mg/dL Total Protein (6.3-8.2) g/dL Albumin (3.5-5.0) g/dL Stool Occult Blood Positive H (Negative) Crossmatch See Detail 07/22/23 Range/Units 08:52 RBC (3.80-5.40) m/uL Hgb (11.4-16.0) gm/dL Hct (34.0-46.0) % APTT (22.0-30.0) sec Sodium (137-145) mmol/L Chloride 114 H (98-107) mmol/L Carbon Dioxide 20 L (22-30) mmol/L BUN 42 H (7-17) mg/dL Glucose 109 H (74-99) mg/dL Calcium 8.1 L (8.4-10.2) mg/dL Total Protein (6.3-8.2) g/dL Albumin (3.5-5.0) g/dL Stool Occult Blood (Negative) Crossmatch Diabetes panel 07/21/23 07/22/23 Range/Units 15:55 08:52 Sodium 134 L 138 (137-145) mmol/L Potassium 3.9 4.3 (3.5-5.1) mmol/L Chloride 108 H 114 H (98-107) mmol/L Carbon Dioxide 18 L 20 L (22-30) mmol/L BUN 51 H 42 H (7-17) mg/dL Creatinine 0.70 0.72 (0.52-1.04) mg/dL Glucose 122 H 109 H (74-99) mg/dL Calcium 8.7 8.1 L (8.4-10.2) mg/dL AST 25 (14-36) U/L ALT 24 (4-34) U/L Alkaline Phosphatase 56 (38-126) U/L Total Protein 5.5 L (6.3-8.2) g/dL Albumin 3.2 L (3.5-5.0) g/dL Calcium panel 07/21/23 07/22/23 Range/Units 15:55 08:52 Calcium 8.7 8.1 L (8.4-10.2) mg/dL Albumin 3.2 L (3.5-5.0) g/dL Pituitary panel 07/21/23 07/22/23 Range/Units 15:55 08:52 Sodium 134 L 138 (137-145) mmol/L Potassium 3.9 4.3 (3.5-5.1) mmol/L Chloride 108 H 114 H (98-107) mmol/L Carbon Dioxide 18 L 20 L (22-30) mmol/L BUN 51 H 42 H (7-17) mg/dL Creatinine 0.70 0.72 (0.52-1.04) mg/dL Glucose 122 H 109 H (74-99) mg/dL Calcium 8.7 8.1 L (8.4-10.2) mg/dL Adrenal panel 07/21/23 07/22/23 Range/Units 15:55 08:52 Sodium 134 L 138 (137-145) mmol/L Potassium 3.9 4.3 (3.5-5.1) mmol/L Chloride 108 H 114 H (98-107) mmol/L Carbon Dioxide 18 L 20 L (22-30) mmol/L BUN 51 H 42 H (7-17) mg/dL Creatinine 0.70 0.72 (0.52-1.04) mg/dL Glucose 122 H 109 H (74-99) mg/dL Calcium 8.7 8.1 L (8.4-10.2) mg/dL Total Bilirubin 0.3 (0.2-1.3) mg/dL AST 25 (14-36) U/L ALT 24 (4-34) U/L Alkaline Phosphatase 56 (38-126) U/L Total Protein 5.5 L (6.3-8.2) g/dL Albumin 3.2 L (3.5-5.0) g/dL
[2023-07-22] MEDS: LEVOTHYROXINE 50 MCG TAB PO SCH (14:05)
[2023-07-22] MEDS: PANTOPRAZOLE 40 MG/10 ML VIAL IV SCH (20:23)
[2023-07-22] MEDS: LATANOPROST 0.005% OPHTH DROPS 2.5 ML BTL BOTH EYES SCH (20:23)
[2023-07-22] MEDS: MELATONIN 5 MG TABLET PO PRN (23:56)
[2023-07-22] MEDS: ACETAMINOPHEN TAB 500 MG TAB PO PRN (23:56)
[2023-07-23] MEDS: LEVOTHYROXINE 50 MCG TAB PO SCH (05:57)
[2023-07-23 06:29] LABS: MCH 30.4 pg (25.0-35.0); MCHC 33.7 g/dL (31.0-37.0); Mean Platelet Volume 9.7; Platelet Count 165 k/uL (150-450); RBC 2.14 m/uL (3.80-5.40); RDW 13.9 % (11.5-15.5); WBC 7.3 k/uL (3.8-10.6)
[2023-07-23 06:48] LABS: HCT 19.3 % (34.0-46.0)
[2023-07-23 06:49] LABS: HGB 6.5 gm/dL (11.4-16.0)
[2023-07-23] MEDS: PANTOPRAZOLE 40 MG/10 ML VIAL IV SCH ×2 (08:26→19:51)
--- NOTE | 2023-07-23 09:55 | P.HPIM ---
History of Present Illness H&P Date: 07/22/23 Dianne Lewis, who presented to [facility] emergency room, with a chief complaint of black melanotic stools and right upper quadrant abdominal pain. He was evaluated in the emergency room vital examination on presentation revealed temp 97.4, heart rate 87, respiratory rate 12, blood pressure 100/62 Laboratory data reveals hemoglobin low at 8.9 Testing in the emergency room revealed CT of abdomen and pelvis showing findings consistent with gastroduodenitis Patient has past medical history of GI bleed secondary to ulcer, CVA, GERD, thyroid disorder Patient was admitted to medical floor for further evaluation and treatment. Surgical services consult placed. Repeat hemoglobin ordered Review of Systems Please refer to HPI otherwise unremarkable Past Medical History Past Medical History: CVA/TIA, GERD/Reflux, Thyroid Disorder Additional Past Medical History / Comment(s): STROKE, EVERYTHING RESOLVED. hx bleeding ulcers, lower back pain History of Any Multi-Drug Resistant Organisms: None Reported Past Surgical History: Hernia Repair, Hysterectomy, Orthopedic Surgery Additional Past Surgical History / Comment(s): Foot Surgery, inguinal hernia lft Past Anesthesia/Blood Transfusion Reactions: No Reported Reaction Additional Past Anesthesia/Blood Transfusion Reaction / Comment(s): no blood tx reactions with transfusion for bleeding ulcer Past Psychological History: No Psychological Hx Reported Smoking Status: Former smoker Past Alcohol Use History: None Reported Past Drug Use History: None Reported - Past Family History Mother Family Medical History: No Reported History Father Family Medical History: Myocardial Infarction ([place]) Medications and Allergies Home Medications Medication Instructions Recorded Confirmed Type Atorvastatin [Lipitor] 20 mg PO HS 03/13/15 07/21/23 History Clopidogrel [Plavix] 75 mg PO HS 03/13/15 07/21/23 History Latanoprost [Xalatan 0.005%] 1 drop BOTH EYES HS 07/24/17 07/21/23 History Levothyroxine Sodium [Synthroid] 50 mcg PO DAILY 12/29/21 07/21/23 History Naproxen Sodium [Aleve] 220 mg PO BID PRN 07/21/23 07/21/23 History polyethylene glycoL 3350 [Miralax] 12.75 gm PO DAILY 07/21/23 07/21/23 History Allergies Allergy/AdvReac Type Severity Reaction Status Date / Time No Known Allergies Allergy Verified 07/21/23 18:30 Physical Exam Vitals: Vital Signs Temp Pulse Pulse Resp BP BP BP 07/22/23 12:15 74 112/68 07/22/23 11:14 77 14 104/67 07/22/23 10:54 60 14 99/63 07/22/23 10:44 98.2 F 82 14 95/55 07/22/23 10:15 68 14 95/61 07/22/23 07:00 98.0 F 86 16 105/64 07/22/23 02:16 97.6 F 71 15 103/67 07/21/23 21:33 97.8 F 67 15 101/66 07/21/23 20:49 70 21 116/67 07/21/23 19:31 87 12 109/62 07/21/23 15:19 97.4 F L 106 H 22 141/75 Pulse Ox 07/22/23 12:15 100 07/22/23 11:14 100 07/22/23 10:54 100 07/22/23 10:44 100 07/22/23 10:15 100 07/22/23 07:00 100 07/22/23 02:16 100 07/21/23 21:33 100 07/21/23 20:49 100 07/21/23 19:31 99 07/21/23 15:19 98 Intake and Output 07/21/23 07/22/23 07/22/23 22:59 06:59 14:59 Intake Total 0 Balance 0 Intake: Blood Product 0 Unit 0 Other: # Voids 1 1 Weight 71.668 kg In general patient is alert and oriented x 3 in no distress HEENT head normocephalic and atraumatic Neck is supple no JVD no goiter no lymphadenopathy no carotid bruit Chest examination is clear to auscultation no crackles no wheezing Cardiac exam reveals regular heart sounds S1 and S2 no gallops no murmurs Abdomen is soft nontender no organomegaly with normal bowel sounds Extremity exam reveals no edema no cyanosis or clubbing Neurological examination reveals no gross focal deficit Results CBC & Chem 7: 07/23/23 06:15 07/22/23 08:52 Labs: Abnormal Lab Results - Last 24 Hours (Table) 07/21/23 07/21/23 07/21/23 Range/Units 15:55 15:55 15:55 RBC 2.93 L (3.80-5.40) m/uL Hgb 8.9 L (11.4-16.0) gm/dL Hct 26.1 L (34.0-46.0) % APTT 20.7 L (22.0-30.0) sec Sodium 134 L (137-145) mmol/L Chloride 108 H (98-107) mmol/L Carbon Dioxide 18 L (22-30) mmol/L BUN 51 H (7-17) mg/dL Glucose 122 H (74-99) mg/dL Calcium (8.4-10.2) mg/dL Total Protein 5.5 L (6.3-8.2) g/dL Albumin 3.2 L (3.5-5.0) g/dL Stool Occult Blood (Negative) Crossmatch 07/21/23 07/21/23 07/22/23 Range/Units 15:55 15:56 08:52 RBC 2.08 L (3.80-5.40) m/uL Hgb 6.2 L* D (11.4-16.0) gm/dL Hct 18.9 L* (34.0-46.0) % APTT (22.0-30.0) sec Sodium (137-145) mmol/L Chloride (98-107) mmol/L Carbon Dioxide (22-30) mmol/L BUN (7-17) mg/dL Glucose (74-99) mg/dL Calcium (8.4-10.2) mg/dL Total Protein (6.3-8.2) g/dL Albumin (3.5-5.0) g/dL Stool Occult Blood Positive H (Negative) Crossmatch See Detail 07/22/23 Range/Units 08:52 RBC (3.80-5.40) m/uL Hgb (11.4-16.0) gm/dL Hct (34.0-46.0) % APTT (22.0-30.0) sec Sodium (137-145) mmol/L Chloride 114 H (98-107) mmol/L Carbon Dioxide 20 L (22-30) mmol/L BUN 42 H (7-17) mg/dL Glucose 109 H (74-99) mg/dL Calcium 8.1 L (8.4-10.2) mg/dL Total Protein (6.3-8.2) g/dL Albumin (3.5-5.0) g/dL Stool Occult Blood (Negative) Crossmatch Assessment and Plan Plan: Right upper quadrant abdominal pain Black tarry stools, with heme positive stools History of daily NSAID use Remote history of stroke in 2004 maintained on Plavix At this time patient is admitted to medical floor Surgical consultation records requested Hold Plavix and aspirinHold Plavix and aspirin Discontinue naproxenDiscontinue naproxen Started on IV Protonix twice daily Will follow closely
--- NOTE | 2023-07-23 09:58 | P.PN ---
Subjective Progress Note Date: 07/23/23 Dianne Lewis, who presented to [facility] emergency room, with a chief complaint of black melanotic stools and right upper quadrant abdominal pain. He was evaluated in the emergency room vital examination on presentation revealed temp 97.4, heart rate 87, respiratory rate 12, blood pressure 100/62 Laboratory data reveals hemoglobin low at 8.9 Testing in the emergency room revealed CT of abdomen and pelvis showing findings consistent with gastroduodenitis Patient has past medical history of GI bleed secondary to ulcer, CVA, GERD, thyroid disorder Patient was admitted to medical floor for further evaluation and treatment. Surgical services consult placed. Repeat hemoglobin ordered On 07/23/2022 for patient alert and oriented 3. Patient is status post EGD showing pyloric ulcer. Patient currently receiving second unit PRBCs for hemoglobin 6.5. This time patient denies chest pain or shortness of breath. Patient denies nausea vomiting or diarrhea. Patient denies any urinary burning or frequency . Current vital signs temp 98.2, heart 71, respiratory rate 16, blood pressure 95/61 with a pulse ox of 99% on room air Objective - Vital Signs Vital signs: Vital Signs Temp 98.2 F 07/23/23 09:48 Pulse 71 07/23/23 09:48 Resp 16 07/23/23 09:48 BP 95/61 07/23/23 09:48 Pulse Ox 99 07/23/23 09:48 FiO2 Intake & Output 07/22/23 07/23/23 07/23/23 18:59 06:59 18:59 Intake Total 428 118 Balance 428 118 Intake: Oral 118 118 Blood Product 310 0 Unit 0 Rc As-1 Unit 310 [id number] Other: Voiding Method Toilet # Voids 1 1 - Exam In general patient is alert and oriented x 3 in no distress HEENT head normocephalic and atraumatic Neck is supple no JVD no goiter no lymphadenopathy no carotid bruit Chest examination is clear to auscultation no crackles no wheezing Cardiac exam reveals regular heart sounds S1 and S2 no gallops no murmurs Abdomen is soft nontender no organomegaly with normal bowel sounds Extremity exam reveals no edema no cyanosis or clubbing Neurological examination reveals no gross focal deficit - Labs CBC & Chem 7: 07/23/23 06:15 07/22/23 08:52 Labs: Abnormal Lab Results - Last 24 Hours (Table) 07/21/23 07/23/23 Range/Units 15:55 06:15 RBC 2.14 L (3.80-5.40) m/uL Hgb 6.5 L* (11.4-16.0) gm/dL Hct 19.3 L* (34.0-46.0) % Crossmatch See Detail Assessment and Plan Plan: Right upper quadrant abdominal pain Black tarry stools, with heme positive stools History of daily NSAID use Remote history of stroke in 2004 maintained on Plavix At this time patient is admitted to medical floor Surgical consultation records requested Status post EGD on 07/22/2011 for showing pyloric ulcer 2 units of PRBCs transfused Hold Plavix and aspirinHold Plavix and aspirin Discontinue naproxenDiscontinue naproxen Started on IV Protonix twice daily Will follow closely
--- NOTE | 2023-07-23 12:24 | P.PN ---
Subjective Progress Note Date: 07/23/23 CHIEF COMPLAINT: GI bleed HISTORY OF PRESENT ILLNESS: Patient status post EGD revealing pyloric ulcer. Ngozi pino reports her abdominal pain has improved. She describes it more as a discomfort and rates it about a one time. I'm she's had no bowel movement and no further black stools. Hemoglobin is still low at 6.5 even after a unit of blood yesterday for hemoglobin of 6.2. She is scheduled for another unit of blood this morning. Afebrile. BP 95/61. PHYSICAL EXAM: VITAL SIGNS: Reviewed. GENERAL: Well-developed in no acute distress. ABDOMEN: Soft. Nondistended. Nontender. NEUROLOGIC: Alert and oriented. Cranial nerves II through XII grossly intact. ASSESSMENT: 1. Acute upper GI bleed due to pyloric ulcer 2. Daily NSAID use 3. History of CVA and on Plavix PLAN: -Continue IV Protonix BID -Agree with transfusing 1 unit of blood -Repeat hemoglobin after blood transfusion -Continue to monitor hemoglobin -Continue to monitor for any signs or symptoms of bleeding -No NSAID use -Continue to hold Plavix -Continue regular diet Physician Supervisor Coffee note has been reviewed by physician. Signing provider agrees with the documented findings, assessment, and plan of care. Objective - Vital Signs Vital signs: Vital Signs Temp 98.1 F 07/23/23 09:28 Pulse 83 07/23/23 09:28 Resp 16 07/23/23 09:28 BP 97/62 07/23/23 09:28 Pulse Ox 98 07/23/23 09:28 FiO2 Intake & Output 07/22/23 07/23/23 07/23/23 18:59 06:59 18:59 Intake Total 428 118 Balance 428 118 Intake: Oral 118 118 Blood Product 310 0 Unit 0 Rc As-1 Unit 310 [id number] Other: # Voids 1 1 - Labs CBC & Chem 7: 07/23/23 06:15 07/22/23 08:52 Labs: Abnormal Lab Results - Last 24 Hours (Table) 07/21/23 07/23/23 Range/Units 15:55 06:15 RBC 2.14 L (3.80-5.40) m/uL Hgb 6.5 L* (11.4-16.0) gm/dL Hct 19.3 L* (34.0-46.0) % Crossmatch See Detail
[2023-07-23] MEDS: ACETAMINOPHEN TAB 500 MG TAB PO PRN ×2 (12:46→19:51)
[2023-07-23] MEDS: SODIUM CHLORIDE 0.9% 1,000 ML IV SCH (13:11)
[2023-07-23 16:09] LABS: Basophils # (A) 0.1 k/uL (0-0.2); Basophils % (A) 1 %; Eosinophils # (A) 0.4 k/uL (0-0.7); Eosinophils % (A) 4 %; HCT 23.9 % (34.0-46.0); Lymphocytes # (A) 2.6 k/uL (1.0-4.8); Lymphocytes % (A) 28 %; MCH 30.4 pg (25.0-35.0); MCHC 34.3 g/dL (31.0-37.0); MCV 88.6 fL (80.0-100.0); Mean Platelet Volume 11.1; Monocytes # (A) 0.5 k/uL (0-1.0); Monocytes % (A) 5 %; Neutrophils # (A) 5.4 k/uL (1.3-7.7); Neutrophils % (A) 60 %; Platelet Count 143 k/uL (150-450); RDW 14.5 % (11.5-15.5)
[2023-07-23 16:22] LABS: HGB 8.2 gm/dL (11.4-16.0)
[2023-07-23] MEDS: MELATONIN 5 MG TABLET PO PRN (19:51)
[2023-07-23] MEDS: LATANOPROST 0.005% OPHTH DROPS 2.5 ML BTL BOTH EYES SCH (19:51)
[2023-07-24] MEDS: SODIUM CHLORIDE 0.9% 1,000 ML IV SCH ×2 (02:57→15:31)
[2023-07-24] MEDS: ACETAMINOPHEN TAB 500 MG TAB PO PRN ×3 (05:26→20:35)
[2023-07-24] MEDS: LEVOTHYROXINE 50 MCG TAB PO SCH (05:26)
[2023-07-24 06:54] LABS: HCT 22.2 % (34.0-46.0); HGB 7.6 gm/dL (11.4-16.0); MCH 30.2 pg (25.0-35.0); MCHC 34.2 g/dL (31.0-37.0); MCV 88.5 fL (80.0-100.0); Platelet Count 158 k/uL (150-450); RBC 2.51 m/uL (3.80-5.40); RDW 14.8 % (11.5-15.5); WBC 7.2 k/uL (3.8-10.6)
--- NOTE | 2023-07-24 07:39 | CDI ---
Documentation Clarification Form Date: 07/24/2023 07:17:30 AM From: Adriana Carranza RN CCDS Phone: [phone] Admit Date: 07/21/2023 07:50:00 PM Patient Name: Dianne Lewis Visit Number: [id number] Discharge Date: ATTENTION: The Clinical Documentation Specialists (CDI) and [facility] Coding Staff appreciate your assistance in clarifying documentation. Please respond to the clarification below the line at the bottom and electronically sign. The CDI & [facility] Coding staff will review the response and follow-up if needed. Please note: Queries are made part of the Legal Health Record. If you have any questions, please contact the author of this message via ITS. Dr. Barb Blanc Unspecified anemia is documented 07/21, ED note. Additional specificity regarding the type, acuity of anemia is requested. History/Risk Factors: 73-year-old female presents to the ED with right upper quadrant pain for a few days, the patient now is having dark tarry diarrhea for one day. Pain is worse with food. Medical History: GERD/Reflux, Thyroid Disorder, CVA and Bleeding Ulcers. 07/21, ED. Clinical indicators: Hemoglobin:07/21 15:55 8.9; 07/22 08:52 6.2; 07/23 06:15 6.5; 07/23 15:56 8.2; 07/24 06:18 7.6 Hematocrit:07/2114:55 26.1; 07/22 08:52 18.9; 07/23 06:15 19.3; 07/23 15:56 23.9; 07/24 06:18 22.2 EGD, 07/22: GI Bleed, Pyloric ulcer. Treatment: 07/22 1 Unit PRBC; 07/23 PRBC; Daily CBC; EGD; Discontinued home Plavix; 07/22 Protonix 40mg IV BID SIXTO. Please clarify the type and acuity of anemia: [ x ] Acute blood loss anemia [ ] Unable to determine [ ] Other, please specify (Template Last Revised: August 2020) MTDD
[2023-07-24] MEDS: PANTOPRAZOLE 40 MG/10 ML VIAL IV SCH ×2 (09:08→20:36)
--- NOTE | 2023-07-24 09:54 | P.PN ---
Subjective Progress Note Date: 07/24/23 Dianne Lewis, who presented to [facility] emergency room, with a chief complaint of black melanotic stools and right upper quadrant abdominal pain. He was evaluated in the emergency room vital examination on presentation revealed temp 97.4, heart rate 87, respiratory rate 12, blood pressure 100/62 Laboratory data reveals hemoglobin low at 8.9 Testing in the emergency room revealed CT of abdomen and pelvis showing findings consistent with gastroduodenitis Patient has past medical history of GI bleed secondary to ulcer, CVA, GERD, thyroid disorder Patient was admitted to medical floor for further evaluation and treatment. Surgical services consult placed. Repeat hemoglobin ordered On 07/23/2022 for patient alert and oriented 3. Patient is status post EGD showing pyloric ulcer. Patient currently receiving second unit PRBCs for hemoglobin 6.5. This time patient denies chest pain or shortness of breath. Patient denies nausea vomiting or diarrhea. Patient denies any urinary burning or frequency . Current vital signs temp 98.2, heart 71, respiratory rate 16, blood pressure 95/61 with a pulse ox of 99% on room air 07/24/2023 patient is alert and oriented x 3. Patient received 2 units of PRBCs initial hemoglobin posttransfusion 8.2 hemoglobin this a.m. 7.6. Patient also complaining of upper gastric pain. Discussed case with surgical services diet will be cut down to full liquid and will recheck hemoglobin at noon. Patient also requesting MiraLAX in which she states she takes daily for over the past 10 years. Patient reports she has not had a bowel movement since last week. Discussed with surgical services okay to continue MiraLAX at this time. Patient denies chest pain or shortness of breath. Patient denies nausea vomiting or diarrhea. Patient denies any urinary burning or frequency. Current vital signs Temp 98.0, heart rate 73, respiratory rate 16, blood pressure 101/57 with a pulse ox of 97% on room air Objective - Vital Signs Vital signs: Vital Signs Temp 98.0 F 07/24/23 07:00 Pulse 73 07/24/23 07:00 Resp 16 07/24/23 07:00 BP 101/57 07/24/23 07:00 Pulse Ox 97 07/24/23 07:00 FiO2 Intake & Output 07/23/23 07/24/23 07/24/23 18:59 06:59 18:59 Intake Total 487 Balance 487 Intake: Oral 177 Blood Product 310 Rc As-1 Unit 310 [id number] Other: Voiding Method Toilet Toilet # Voids 1 2 # Bowel Movements 1 - Exam In general patient is alert and oriented x 3 in no distress HEENT head normocephalic and atraumatic Neck is supple no JVD no goiter no lymphadenopathy no carotid bruit Chest examination is clear to auscultation no crackles no wheezing Cardiac exam reveals regular heart sounds S1 and S2 no gallops no murmurs Abdomen is soft nontender no organomegaly with normal bowel sounds Extremity exam reveals no edema no cyanosis or clubbing Neurological examination reveals no gross focal deficit - Labs CBC & Chem 7: 07/24/23 06:18 07/22/23 08:52 Labs: Abnormal Lab Results - Last 24 Hours (Table) 07/21/23 07/23/23 07/24/23 Range/Units 15:55 15:56 06:18 RBC 2.70 L 2.51 L (3.80-5.40) m/uL Hgb 8.2 L D 7.6 L (11.4-16.0) gm/dL Hct 23.9 L 22.2 L (34.0-46.0) % Plt Count 143 L (150-450) k/uL Crossmatch See Detail Assessment and Plan Plan: Right upper quadrant abdominal pain Black tarry stools, with heme positive stools History of daily NSAID use Remote history of stroke in 2004 maintained on Plavix At this time patient is admitted to medical floor Surgical consultation records requested Status post EGD on 07/22/2011 for showing pyloric ulcer 2 units of PRBCs transfused Hold Plavix and aspirinHold Plavix and aspirin Discontinue naproxenDiscontinue naproxen Started on IV Protonix twice daily Will follow closely
[2023-07-24] MEDS: polyethylene glycoL 3350 17 GM POWD.PACK PO SCH (10:27)
--- NOTE | 2023-07-24 11:46 | P.PN ---
Subjective Progress Note Date: 07/24/23 CHIEF COMPLAINT: GI bleed HISTORY OF PRESENT ILLNESS: Patient status post EGD revealing pyloric ulcer. P atkeith complains that she is not feeling well today. She reports more epigastric discomfort and pressure. She reports a decreased appetite. No nausea or vomiting. No bowel movement. Hemoglobin did go up from 6.5-8.2 after 1 unit of blood. Hemoglobin this morning is back down to 7.6. BP 101/57 PHYSICAL EXAM: VITAL SIGNS: Reviewed. GENERAL: Well-developed in no acute distress. ABDOMEN: Soft. Nondistended. Epigastric discomfort with palpation NEUROLOGIC: Alert and oriented. Cranial nerves II through XII grossly intact. ASSESSMENT: 1. Acute upper GI bleed due to pyloric ulcer 2. Daily NSAID use 3. History of CVA and on Plavix PLAN: -Downgrade diet to full liquids -Repeat CBC at noon -Continue IV Protonix BID -Continue to monitor hemoglobin -Continue to monitor for any signs or symptoms of bleeding -No NSAID use -Continue to hold Plavix Physician Bead Stringer note has been reviewed by physician. Signing provider agrees with the documented findings, assessment, and plan of care. Objective - Vital Signs Vital signs: Vital Signs Temp 98.0 F 07/24/23 07:00 Pulse 73 07/24/23 07:00 Resp 16 07/24/23 07:00 BP 101/57 07/24/23 07:00 Pulse Ox 97 07/24/23 07:00 FiO2 Intake & Output 07/23/23 07/24/23 07/24/23 18:59 06:59 18:59 Intake Total 487 Balance 487 Intake: Oral 177 Blood Product 310 Rc As-1 Unit 310 [id number] Other: Voiding Method Toilet Toilet # Voids 1 2 # Bowel Movements 1 - Labs CBC & Chem 7: 07/24/23 06:18 07/22/23 08:52 Labs: Abnormal Lab Results - Last 24 Hours (Table) 07/21/23 07/23/23 07/24/23 Range/Units 15:55 15:56 06:18 RBC 2.70 L 2.51 L (3.80-5.40) m/uL Hgb 8.2 L D 7.6 L (11.4-16.0) gm/dL Hct 23.9 L 22.2 L (34.0-46.0) % Plt Count 143 L (150-450) k/uL Crossmatch See Detail
[2023-07-24 12:07] LABS: Basophils # (A) 0.1 k/uL (0-0.2); Basophils % (A) 1 %; Eosinophils # (A) 0.4 k/uL (0-0.7); Eosinophils % (A) 4 %; HCT 25.3 % (34.0-46.0); HGB 8.5 gm/dL (11.4-16.0); Lymphocytes # (A) 2.8 k/uL (1.0-4.8); Lymphocytes % (A) 35 %; MCH 30.1 pg (25.0-35.0); MCHC 33.8 g/dL (31.0-37.0); MCV 88.9 fL (80.0-100.0); Monocytes # (A) 0.5 k/uL (0-1.0); Monocytes % (A) 6 %; Neutrophils # (A) 4.2 k/uL (1.3-7.7); Neutrophils % (A) 52 %; Platelet Count 178 k/uL (150-450); RBC 2.84 m/uL (3.80-5.40); RDW 14.9 % (11.5-15.5); WBC 8.1 k/uL (3.8-10.6)
[2023-07-24] MEDS: SUCRALFATE 1 GM TAB PO SCH ×3 (12:14→20:35)
[2023-07-24] MEDS: MELATONIN 5 MG TABLET PO PRN (20:35)
[2023-07-24] MEDS: LATANOPROST 0.005% OPHTH DROPS 2.5 ML BTL BOTH EYES SCH (20:36)
[2023-07-25] MEDS: SUCRALFATE 1 GM TAB PO SCH ×4 (05:53→19:48)
[2023-07-25] MEDS: LEVOTHYROXINE 50 MCG TAB PO SCH (05:53)
[2023-07-25] MEDS: SODIUM CHLORIDE 0.9% 1,000 ML IV SCH ×2 (05:54→17:01)
[2023-07-25 08:59] LABS: ALT 13 U/L (8-44); AST 11 U/L (13-35); Albumin 2.9 g/dL (3.8-4.9); Albumin/Globulin Ratio 2.23 Ratio (1.60-3.17); Alkaline Phosphatase 45 U/L (41-126); BUN/Creat Ratio 16.83 Ratio (12.00-20.00); Blood Urea Nitrogen 10.1 mg/dL (9.0-27.0); Calcium 8.3 mg/dL (8.7-10.3); Carbon Dioxide 24.8 mmol/L (21.6-31.8); Chloride 113 mmol/L (96-109); Globulin 1.3 g/dL (1.6-3.3); Glucose 98 mg/dL (70-110); Potassium 3.7 mmol/L (3.5-5.5); Sodium 145 mmol/L (135-145); Total Bilirubin <0.2 mg/dL (0.3-1.2); Total Protein 4.2 g/dL (6.2-8.2)
[2023-07-25] MEDS: polyethylene glycoL 3350 17 GM POWD.PACK PO SCH (09:10)
[2023-07-25] MEDS: PANTOPRAZOLE 40 MG/10 ML VIAL IV SCH (09:12)
[2023-07-25] MEDS: ACETAMINOPHEN TAB 500 MG TAB PO PRN ×3 (09:18→21:16)
[2023-07-25 09:27] LABS: Basophils # (A) 0.05 X 10*3/uL (0.00-0.10); Basophils % (A) 0.7 %; Eosinophils # (A) 0.53 X 10*3/uL (0.04-0.35); Eosinophils % (A) 7.9 %; HCT 22.9 % (37.2-46.3); HGB 7.5 g/dL (12.0-15.0); Lymphocytes # (A) 2.57 X 10*3/uL (0.90-5.00); Lymphocytes % (A) 38.1 %; MCH 29.4 pg (27.0-32.0); MCHC 32.8 g/dL (32.0-37.0); MCV 89.8 FL (80.0-97.0); Mean Platelet Volume 12.6 FL (9.5-12.2); Monocytes # (A) 0.57 X 10*3/uL (0.20-1.00); Monocytes % (A) 8.5 %; NRBC Per 100 WBC 0 X 10*3/uL (0.00-0.01); Neutrophils # (A) 2.98 X 10*3/uL (1.80-7.70); Neutrophils % (A) 44.2 %; Platelet Count 178 X 10*3/uL (140-440); RBC 2.55 X 10*6/uL (4.10-5.20); RDW 15.3 % (11.5-14.5); WBC 6.74 X 10*3/uL (4.50-10.00)
--- NOTE | 2023-07-25 13:48 | P.PN ---
Subjective Progress Note Date: 07/25/23 CHIEF COMPLAINT: GI bleed HISTORY OF PRESENT ILLNESS: Patient status post EGD revealing pyloric ulcer. P alvarez reports she is feeling better today. Denies any abdominal pain. She did have a bowel movement yesterday which was small and brown. Denies any nausea or vomiting. hemoglobin did drop from 8.5-7.5. PHYSICAL EXAM: VITAL SIGNS: Reviewed. GENERAL: Well-developed in no acute distress. ABDOMEN: Soft. Nondistended. Nontender NEUROLOGIC: Alert and oriented. Cranial nerves II through XII grossly intact. ASSESSMENT: 1. Acute upper GI bleed due to pyloric ulcer 2. Daily NSAID use 3. History of CVA and on Plavix at home PLAN: -Continue regular diet -Continue IV Protonix BID -Continue to monitor hemoglobin -Continue to monitor for any signs or symptoms of bleeding -No NSAID use -Continue to hold Plavix Physician Bit Sharpener Operator note has been reviewed by physician. Signing provider agrees with the documented findings, assessment, and plan of care. Objective - Vital Signs Vital signs: Vital Signs Temp 97.9 F 07/25/23 08:00 Pulse 61 07/25/23 08:00 Resp 18 07/25/23 08:00 BP 102/64 07/25/23 08:00 Pulse Ox 96 07/25/23 08:00 FiO2 Intake & Output 07/24/23 07/25/23 07/25/23 18:59 06:59 18:59 Intake Total 240 Balance 240 Intake: Oral 240 Other: Voiding Method Toilet Toilet # Voids 1 3 0 # Bowel Movements 0 - Labs CBC & Chem 7: 07/25/23 05:46 07/25/23 05:46 Labs: Abnormal Lab Results - Last 24 Hours (Table) 07/24/23 07/25/23 07/25/23 Range/Units 11:47 05:46 05:46 RBC 2.84 L 2.55 L (3.80-5.40) m/uL Hgb 8.5 L 7.5 L (11.4-16.0) gm/dL Hct 25.3 L 22.9 L (34.0-46.0) % RDW 15.3 H (11.5-14.5) % MPV 12.6 H (9.5-12.2) FL Eosinophils # 0.53 H (0.04-0.35) X 10*3/uL Chloride 113 H (96-109) mmol/L Calcium 8.3 L (8.7-10.3) mg/dL Total Bilirubin <0.2 L (0.3-1.2) mg/dL AST 11 L (13-35) U/L Total Protein 4.2 L (6.2-8.2) g/dL Albumin 2.9 L (3.8-4.9) g/dL Globulin 1.3 L (1.6-3.3) g/dL
--- NOTE | 2023-07-25 16:55 | P.PN ---
Subjective Progress Note Date: 07/25/23 Dianne Lewis, who presented to [facility] emergency room, with a chief complaint of black melanotic stools and right upper quadrant abdominal pain. He was evaluated in the emergency room vital examination on presentation revealed temp 97.4, heart rate 87, respiratory rate 12, blood pressure 100/62 Laboratory data reveals hemoglobin low at 8.9 Testing in the emergency room revealed CT of abdomen and pelvis showing findings consistent with gastroduodenitis Patient has past medical history of GI bleed secondary to ulcer, CVA, GERD, thyroid disorder Patient was admitted to medical floor for further evaluation and treatment. Surgical services consult placed. Repeat hemoglobin ordered On 07/23/2022 for patient alert and oriented 3. Patient is status post EGD showing pyloric ulcer. Patient currently receiving second unit PRBCs for hemoglobin 6.5. This time patient denies chest pain or shortness of breath. Patient denies nausea vomiting or diarrhea. Patient denies any urinary burning or frequency . Current vital signs temp 98.2, heart 71, respiratory rate 16, blood pressure 95/61 with a pulse ox of 99% on room air 07/24/2023 patient is alert and oriented x 3. Patient received 2 units of PRBCs initial hemoglobin posttransfusion 8.2 hemoglobin this a.m. 7.6. Patient also complaining of upper gastric pain. Discussed case with surgical services diet will be cut down to full liquid and will recheck hemoglobin at noon. Patient also requesting MiraLAX in which she states she takes daily for over the past 10 years. Patient reports she has not had a bowel movement since last week. Discussed with surgical services okay to continue MiraLAX at this time. Patient denies chest pain or shortness of breath. Patient denies nausea vomiting or diarrhea. Patient denies any urinary burning or frequency. Current vital signs Temp 98.0, heart rate 73, respiratory rate 16, blood pressure 101/57 with a pulse ox of 97% on room air On 07/25/2023 patient was seen and examined on the medical floor she is alert and oriented 3 in no apparent distress there is no fever or chills no headache or dizziness no chest pain no shortness of breath no cough no nausea or vomiting no abdominal pain no diarrhea and no urinary symptoms hemoglobin is back down again to 7.5 will recheck in a.m. if stable possible discharge to home tomorrow Objective - Vital Signs Vital signs: Vital Signs Temp 97.9 F 07/25/23 08:00 Pulse 61 07/25/23 08:00 Resp 18 07/25/23 08:00 BP 102/64 07/25/23 08:00 Pulse Ox 96 07/25/23 08:00 FiO2 Intake & Output 07/24/23 07/25/23 07/25/23 18:59 06:59 18:59 Intake Total 240 Balance 240 Intake: Oral 240 Other: Voiding Method Toilet # Voids 1 3 0 # Bowel Movements 0 - Exam In general patient is alert and oriented x 3 in no distress HEENT head normocephalic and atraumatic Neck is supple no JVD no goiter no lymphadenopathy no carotid bruit Chest examination is clear to auscultation no crackles no wheezing Cardiac exam reveals regular heart sounds S1 and S2 no gallops no murmurs Abdomen is soft nontender no organomegaly with normal bowel sounds Extremity exam reveals no edema no cyanosis or clubbing Neurological examination reveals no gross focal deficit - Labs CBC & Chem 7: 07/25/23 05:46 07/25/23 05:46 Labs: Abnormal Lab Results - Last 24 Hours (Table) 07/24/23 07/25/23 07/25/23 Range/Units 11:47 05:46 05:46 RBC 2.84 L 2.55 L (3.80-5.40) m/uL Hgb 8.5 L 7.5 L (11.4-16.0) gm/dL Hct 25.3 L 22.9 L (34.0-46.0) % RDW 15.3 H (11.5-14.5) % MPV 12.6 H (9.5-12.2) FL Eosinophils # 0.53 H (0.04-0.35) X 10*3/uL Chloride 113 H (96-109) mmol/L Calcium 8.3 L (8.7-10.3) mg/dL Total Bilirubin <0.2 L (0.3-1.2) mg/dL AST 11 L (13-35) U/L Total Protein 4.2 L (6.2-8.2) g/dL Albumin 2.9 L (3.8-4.9) g/dL Globulin 1.3 L (1.6-3.3) g/dL Assessment and Plan Plan: Right upper quadrant abdominal pain Black tarry stools, with heme positive stools History of daily NSAID use Remote history of stroke in 2004 maintained on Plavix At this time patient is admitted to medical floor Surgical consultation records requested Status post EGD on 07/22/2011 for showing pyloric ulcer 2 units of PRBCs transfused Hold Plavix and aspirinHold Plavix and aspirin Discontinue naproxenDiscontinue naproxen Started on IV Protonix twice daily Will follow closely
[2023-07-25] MEDS: LATANOPROST 0.005% OPHTH DROPS 2.5 ML BTL BOTH EYES SCH (19:48)
[2023-07-25] MEDS: PANTOPRAZOLE 40 MG TABLET PO SCH (19:48)
[2023-07-25] MEDS: MELATONIN 5 MG TABLET PO PRN (21:15)
[2023-07-26] MEDS: LEVOTHYROXINE 50 MCG TAB PO SCH (05:52)
[2023-07-26] MEDS: SUCRALFATE 1 GM TAB PO SCH (05:52)
[2023-07-26] MEDS: SODIUM CHLORIDE 0.9% 1,000 ML IV SCH (05:53)
[2023-07-26 08:14] VITALS: BP 97/59; PULSE 55; RESP 15; TEMP 97.7
[2023-07-26] MEDS: PANTOPRAZOLE 40 MG TABLET PO SCH (09:29)
[2023-07-26] MEDS: polyethylene glycoL 3350 17 GM POWD.PACK PO SCH (09:29)
[2023-07-26 11:13] LABS: Basophils # (A) 0.05 X 10*3/uL (0.00-0.10); Basophils % (A) 0.8 %; Eosinophils # (A) 0.62 X 10*3/uL (0.04-0.35); Eosinophils % (A) 9.5 %; HCT 24.6 % (37.2-46.3); HGB 8.1 g/dL (12.0-15.0); Lymphocytes # (A) 2.04 X 10*3/uL (0.90-5.00); Lymphocytes % (A) 31.2 %; MCH 29.9 pg (27.0-32.0); MCHC 32.9 g/dL (32.0-37.0); MCV 90.8 FL (80.0-97.0); Mean Platelet Volume 12.6 FL (9.5-12.2); Monocytes # (A) 0.48 X 10*3/uL (0.20-1.00); Monocytes % (A) 7.3 %; NRBC Per 100 WBC 0.02 X 10*3/uL (0.00-0.01); Neutrophils # (A) 3.32 X 10*3/uL (1.80-7.70); Neutrophils % (A) 50.7 %; Platelet Count 206 X 10*3/uL (140-440); RBC 2.71 X 10*6/uL (4.10-5.20); RDW 15.8 % (11.5-14.5); WBC 6.54 X 10*3/uL (4.50-10.00)
[2023-07-26 11:20] VITALS: BMI 25.4
[2023-07-26 11:30] LABS: ALT 13 U/L (8-44); AST 13 U/L (13-35); Albumin 3.2 g/dL (3.8-4.9); Albumin/Globulin Ratio 2.13 Ratio (1.60-3.17); Alkaline Phosphatase 50 U/L (41-126); BUN/Creat Ratio 15.12 Ratio (12.00-20.00); Blood Urea Nitrogen 12.1 mg/dL (9.0-27.0); Calcium 9.2 mg/dL (8.7-10.3); Carbon Dioxide 25.1 mmol/L (21.6-31.8); Chloride 109 mmol/L (96-109); Globulin 1.5 g/dL (1.6-3.3); Glucose 99 mg/dL (70-110); Potassium 3.8 mmol/L (3.5-5.5); Sodium 143 mmol/L (135-145); Total Bilirubin 0.2 mg/dL (0.3-1.2); Total Protein 4.7 g/dL (6.2-8.2)
--- NOTE | 2023-07-26 11:36 | P.PN ---
Subjective Progress Note Date: 07/26/23 CHIEF COMPLAINT: GI bleed HISTORY OF PRESENT ILLNESS: Patient status post EGD revealing pyloric ulcer. P atient continues to feel better. She had another brown bowel movement. Hemoglobin has gone up from 7.5-8.1. She is tolerating diet. She has been up and ambulating without any dizziness or shortness of breath. PHYSICAL EXAM: VITAL SIGNS: Reviewed. GENERAL: Well-developed in no acute distress. ABDOMEN: Soft. Nondistended. Nontender NEUROLOGIC: Alert and oriented. Cranial nerves II through XII grossly intact. ASSESSMENT: 1. Acute upper GI bleed due to pyloric ulcer 2. Daily NSAID use 3. History of CVA and on Plavix at home PLAN: -Patient can be discharged from surgical standpoint -Continue PPI after discharge -No NSAID use -Continue to hold Plavix Physician Product Test Engineer note has been reviewed by physician. Signing provider agrees with the documented findings, assessment, and plan of care. Objective - Vital Signs Vital signs: Vital Signs Temp 97.7 F 07/26/23 07:05 Pulse 55 L 07/26/23 07:05 Resp 15 07/26/23 07:05 BP 97/59 07/26/23 07:05 Pulse Ox 98 07/26/23 07:05 FiO2 Intake & Output 07/25/23 07/26/23 07/26/23 18:59 06:59 18:59 Intake Total 238 236 Balance 238 236 Weight 71.668 kg Intake: Oral 238 236 Other: Voiding Method Toilet Toilet # Voids 2 2 # Bowel Movements 0 - Labs CBC & Chem 7: 07/26/23 06:49 07/26/23 06:49 Labs: Abnormal Lab Results - Last 24 Hours (Table) 07/26/23 07/26/23 Range/Units 06:49 06:49 RBC 2.71 L (4.10-5.20) X 10*6/uL Hgb 8.1 L (12.0-15.0) g/dL Hct 24.6 L (37.2-46.3) % RDW 15.8 H (11.5-14.5) % MPV 12.6 H (9.5-12.2) FL Eosinophils # 0.62 H (0.04-0.35) X 10*3/uL NRBC/100 WBC Diff 0.02 H (0.00-0.01) X 10*3/uL Total Bilirubin 0.2 L (0.3-1.2) mg/dL Total Protein 4.7 L (6.2-8.2) g/dL Albumin 3.2 L (3.8-4.9) g/dL Globulin 1.5 L (1.6-3.3) g/dL
== END 2023-07-26 13:57 | disposition home or self-care (01) | DRG 378 ==
LOC: EC 15:17 → 6NMEDSUR 19:49 → OBSVTOIN 19:50 → 6NMEDSUR 20:39
PROVIDERS: ADMIT Internal Medicine; ATTEND Internal Medicine
PROC: 30233N1 Transfusion of Nonautologous Red Blood Cells into Peripheral Vein, Percutaneous Approach (ICD-10-PCS; principal; 2023-07-22 07:30)
PROC: 0DB98ZX Excision of Duodenum, Via Natural or Artificial Opening Endoscopic, Diagnostic (ICD-10-PCS; principal; 2023-07-22 07:30)
DX: K25.0 Acute gastric ulcer with hemorrhage (principal); D62 Acute posthemorrhagic anemia; M48.061 Spinal stenosis, lumbar region without neurogenic claudication; M47.816 Spondylosis without myelopathy or radiculopathy, lumbar region; E07.9 Disorder of thyroid, unspecified; K21.9 Gastro-esophageal reflux disease without esophagitis; K29.90 Gastroduodenitis, unspecified, without bleeding; Z86.73 Personal history of transient ischemic attack (TIA), and cerebral infarction without residual deficits; Z79.899 Other long term (current) drug therapy; Z79.890 Hormone replacement therapy; Z79.02 Long term (current) use of antithrombotics/antiplatelets; Z79.1 Long term (current) use of non-steroidal anti-inflammatories (NSAID); Z87.891 Personal history of nicotine dependence
CPT/HCPCS: 36415; 43239; 71046; 74177; 76705; 80048; 80053; 81003; 82150; 82272; 83605; 83690; 84484; 85025; 85027; 85610; 85730; 86850; 86900; 86901; 86920; 88305; 93005; 96361; 96374; 96375; 99285

== ENCOUNTER → 2023-10-14 | Outpatient (CLI) | payer MEDICARE, OTHER ==
--- NOTE | 2023-10-14 20:42 | MM ---
Reason for Exam: Screening (asymptomatic). Last mammogram was performed 1 year(s) and 10 month(s) ago. Patient History: Menarche at age 16. First Full-Term at age 28. Left ovary removed at age 49. Right ovary removed at age 49. Hysterectomy at age 49. Postmenopausal. Risk Values: Blanca 5 year model risk: 1.8%. NCI Lifetime model risk: 4.9%. Prior Study Comparison: 01/20/2018 Bilateral Screening Mammogram, [facility]. 01/21/2019 Bilateral Screening Mammogram, [facility]. 12/12/2021 Bilateral MG 3D screening mammo w/cad, [facility]. Tissue Density: There are scattered areas of fibroglandular density. Findings: Analyzed By CAD. The pattern is symmetrical. The pattern is stable. No significant interval change. No suspicious groups of microcalcifications, spiculated or lobular masses, architectural distortion or other secondary signs of malignancy are mammographically apparent. Overall Assessment: Negative, BI-RAD 1 Management: Screening Mammogram of both breasts in 1 year. A negative mammogram report should not preclude additional follow up of suspicious palpable abnormalities. Patient should continue monthly self breast exam. A clinical breast exam by your physician is recommended on an annual basis and results should be correlated with mammographic findings. Electronically signed and approved by: Chang Cannon D.O. Radiologis
== END | disposition home or self-care (01) ==
LOC: RADMAMWWP 14:58
PROVIDERS: ATTEND Family Medicine
DX: Z12.31 Encounter for screening mammogram for malignant neoplasm of breast (principal); Z78.0 Asymptomatic menopausal state
CPT/HCPCS: 77063; 77067

== ENCOUNTER 2024-01-08 05:57 | Day surgery (SDC) | payer MEDICARE, OTHER ==
[2024-01-06 14:50] VITALS: BMI 26.1
[2024-01-08 06:45] VITALS: TEMP 97.4
[2024-01-08] MEDS: SODIUM CHLORIDE 0.9% 500 ML 500 ML IV ONE (06:48)
[2024-01-08] MEDS ORDERED: fentaNYL (PF) 50 MCG/ML 2 ML AMP ONE (07:00)
[2024-01-08] MEDS: BENZOCAINE SPRAY 1 CAN MUCOUS MEM ONE (07:14)
[2024-01-08] MEDS: MIDAZOLAM 2 MG/2 ML VIAL IVP ONE (07:20)
[2024-01-08] MEDS: fentaNYL (PF) 50 MCG/1 ML VIAL IVP ONE (07:20)
[2024-01-08 07:24] VITALS: RESP 16
--- NOTE | 2024-01-08 07:36 | P.PCN ---
Date of Procedure: 01/08/24 Description of Procedure: Indication: Evaluation of left atrium Procedure Description: After explaining the procedure to the patient, it's risk and complications, blood pressure, heart rate and O2 saturation were monitored. The throat was sprayed with Cetacaine. Patient received 2 mg intravenous Versed, 50 mcg intravenous fentanyl. The probe was introduced into the esophagus without difficulty. Images were obtained. Following that, the probe was removed. There was no immediate complication. Findings: Left atrial size is normal, no evidence of echogenic masses was noted. Left atrial appendage is normal. Left ventricular size and systolic function are normal. The aortic valve is a tricuspid valve with mild fibrocalcific changes with preserved opening. Mitral valve appears to be normal. Tricuspid valve and pulmonic valve are normal. Descending thoracic aorta appears to be normal. No pericardial effusion was noted. Contrast bubble study revealed no shunting across the interatrial septum. Doppler: Pulse wave and color Doppler were obtained, and revealed mild to moderate tricuspid with mild aortic, mitral and trace pulmonic regurgitation. There was no shunting across the interatrial septum. Conclusion: 1. Normal left atrium with no evidence of thrombus or mass 2. Normal ventricle size and systolic function 3. Mild to moderate tricuspid with mild mitral regurgitation 4. Mild aortic regurgitation 5. No shunting across the interatrial septum Duration of sedation: 12 minutes.
[2024-01-08] MEDS ORDERED: SODIUM CHLORIDE 0.9% 1,000 ML IV SCH (07:45)
[2024-01-08 08:47] VITALS: BP 112/54; PULSE 56
[2024-01-08] MEDS ORDERED: LEVOTHYROXINE 50 MCG TAB PO SCH (09:00)
[2024-01-08] MEDS ORDERED: NON FORMULARY DRUG (Aspirin [Adult Low Dose Aspirin Ec] 81 MG Tablet) PO SCH (09:00)
[2024-01-08] MEDS ORDERED: PANTOPRAZOLE 40 MG TABLET PO SCH (09:00)
[2024-01-08] MEDS ORDERED: ATORVASTATIN 20 MG TAB PO SCH (21:00)
[2024-01-08] MEDS ORDERED: LATANOPROST 0.005% OPHTH DROPS 2.5 ML BTL BOTH EYES SCH (21:00)
== END 2024-01-08 08:55 | disposition home or self-care (01) ==
LOC: CATHCVL 05:57
PROVIDERS: ATTEND Internal Medicine Interventional Cardiology
DX: I08.0 Rheumatic disorders of both mitral and aortic valves (principal); E78.5 Hyperlipidemia, unspecified; I65.21 Occlusion and stenosis of right carotid artery; Z87.891 Personal history of nicotine dependence; Z79.899 Other long term (current) drug therapy; Z79.01 Long term (current) use of anticoagulants
CPT/HCPCS: 93312; 93320; 93325; J2250; J3010